=== PATIENT | female | born 1950 | race Caucasian/White ===

== ENCOUNTER 2021-09-07 08:31 | Outpatient (REF) | payer MEDICARE, SELFPAY ==
[2021-09-07 11:25] LABS: MANUAL DIFF FLAG NO
[2021-09-07 11:34] LABS: Appearance Urine CLEAR; Color Urine YELLOW; Glucose Urine UA NEG (NEG); Leukocyte Esterase Urine TRACE (NEG); Nitrite Urine NEG (NEG); PH 6.5 (5.0-8.0); Urine Blood NEG (NEG); Urine Ketones NEG (NEG); Urine Protein NEG (NEG-TRACE)
[2021-09-07 11:42] LABS: Basophils Absolute Auto 0.1 X10*3/uL (0.0-0.2); Basophils Percent Auto 1.3 % (0-2); Eosinophils Absolute Auto 0.3 X10*3/uL (0.0-0.4); Eosinophils Percent Auto 4.1 % (0-4); Hematocrit 39.5 % (37.0-47.0); Imm Gran Abs Auto 0.04 X10*3/uL (0.00-0.03); Imm Gran Pct Auto 0.5 % (0.0-0.4); Lymphocytes Absolute Auto 1.9 X10*3/uL (1.2-4.9); Lymphocytes Percent Auto 23.2 % (20-40); Mean Corpuscular HGB Conc 32.9 g/dl (31.0-35.0); Mean Corpuscular Hemoglobin 30.4 pg (27.0-33.0); Mean Corpuscular Volume 92.3 fL (80.0-98.0); Mean Platelet Volume 9.4 fL (9.4-12.3); Monocytes Absolute Auto 0.6 X10*3/uL (0.1-1.2); Monocytes Percent Auto 7.3 % (2-11); Neutrophils Absolute Auto 5.28 x10*3/uL (2.0-8.3); Neutrophils Percent Auto 63.6 % (45-73); Platelet Count 432 X10*3/uL (160-400); Red Blood Count 4.28 X10*6/uL (4.20-5.50); Red Cell Distribution Width 14.6 % (11.0-16.0); White Blood Count 8.3 X10*3/uL (4.8-10.8)
[2021-09-07 12:01] LABS: RBC Urine 0-2 /HPF (0); WBC Urine 0-2 /HPF (0-4)
[2021-09-07 12:20] LABS: Alanine Aminotransferase 12 U/L (0-31); Albumin Level 4.4 g/dL (3.5-5.0); Alkaline Phosphatase 71 U/L (39-117); Anion Gap 13 (12-20); Aspartate Amino Transferase 21 U/L (5-31); Bilirubin Total 0.3 mg/dL (0.0-1.0); Blood Urea Nitrogen 14 mg/dL (9-16); C Reactive Protein 0.08 mg/dL (< or = 0.50); Calcium 9.7 mg/dL (8.4-10.2); Carbon Dioxide 27 mmol/L (22-29); Chloride 105 mmol/L (96-108); Cholesterol 218 mg/dL; Estimated Glomerular Filt Rate > 60; Glucose Fasting 122 mg/dL (60-99); HDL Cholesterol 81 mg/dL; LDL Cholesterol Calculated 125 mg/dl; Potassium 5.7 mmol/L (3.3-5.1); Sodium 139 mmol/L (135-145); Total Protein 7.1 g/dL (6.5-8.0); Triglycerides 64 mg/dL
[2021-09-07 12:23] LABS: Erythrocyte Sedimentation Rate 8 MM/HR (0-20)
[2021-09-07 12:41] LABS: Thyroid Stimulating Hormone 2.74 uIU/mL (0.32-4.0); Vitamin D 25-OH Total 43.7 ng/mL (>30)
== END 2021-09-07 08:32 | disposition home or self-care (01) ==
LOC: HO.HMGCLDS 08:31
PROVIDERS: PCP Internal Medicine; Visit Provider Internal Medicine
DX: Z00.00 Encounter for general adult medical examination without abnormal findings (principal); R63.4 Abnormal weight loss; E78.00 Pure hypercholesterolemia, unspecified; F17.200 Nicotine dependence, unspecified, uncomplicated
CPT/HCPCS: 36415; 80053; 80061; 81001; 82306; 84443; 85025; 85652; 86140

== ENCOUNTER 2021-09-19 12:01 | Outpatient (REF) | payer MEDICARE, SELFPAY ==
--- NOTE | ~2021-09-19 | CT_ITS ---
EXAMINATION: CT CHEST, ABDOMEN PELVIS WITH CONTRAST. CLINICAL INFORMATION: Weight loss and nicotine dependence. COMPARISON: None. TECHNIQUE: 5 mm thin axial and reformatted 3 mm thin sagittal and coronal images of chest, abdomen and pelvis were obtained following IV administration of 85 mL Omnipaque 350. DLP 268 mGy-cm. FINDINGS: CHEST: Lungs: The lungs are well expanded and clear of acute pneumonic process. There are no pulmonary nodules, mass, consolidation or ground-glass density. Mediastinum: The thyroid lobes are symmetrical and normal. Central trachea and the bronchi are widely patent. Heart size and the great vessels are normal caliber. There is atherosclerotic plaque the with small dissection in the left proximal subclavian artery. There is no pericardial effusion. No abnormal-sized mediastinal or hilar lymphadenopathy seen. Pleura: There is no pleural thickening, calcification or effusion. Axilla: Small shotty lymph nodes are seen in the left axilla with the largest lymph node measuring 1.43 cm on image 9/4. No abnormal lymph nodes seen in the right axilla. Osseous structures: There is no lytic or sclerotic process seen. ABDOMEN AND PELVIS: Liver, gallbladder and biliary ducts: The liver is normal size, shape and density. No focal lesion or intrahepatic ductal dilatation seen. The gallbladder is unremarkable. Spleen: Unremarkable. Pancreas: There is mild enlargement of the body and the tail of pancreas but no focal or discrete lesion or enhancement seen. Adrenal glands and kidneys: The adrenal glands are symmetric and normal. Both kidneys are normal size, shape and density. No focal lesion or enhancement seen. There is no hydronephrosis. GI tract: There is kuyyltvj-dg-uqsvf amount of stool and gas seen throughout the colon most prominent in the ascending colon and the cecum region. The small bowel loops are normal caliber. No free air or free fluid seen. Lymphovascular structures: The abdominal aorta is normal caliber with mild sclerotic calcification. No abnormal size retroperitoneal lymph nodes or mass seen. Abdominal wall: Unremarkable. Pelvis: The bladder is distended but otherwise unremarkable. The uterus is anteverted and appears unremarkable. There is no adnexal mass or free fluid. Osseous structures: There is vacuum disc phenomena and degenerative disc changes L4-L5 disc level with mild loss of L3-L4 and L4-L5 disc levels. No lytic or sclerotic process seen. CT/CT chest w con IMPRESSION: No acute process seen in the chest. No pulmonary nodule or mass. Abnormal left axillary lymph nodes with the largest lymph node measuring 1.43 cm. Unknown etiology. Ultrasound-guided lymph node aspiration can be performed if clinically deemed necessary. Murrwqio-zf-ppcamkfsylz constipation without obstruction. No free air or free fluid seen.
--- NOTE | ~2021-09-19 | CT_ITS ---
EXAMINATION: CT CHEST, ABDOMEN PELVIS WITH CONTRAST. CLINICAL INFORMATION: Weight loss and nicotine dependence. COMPARISON: None. TECHNIQUE: 5 mm thin axial and reformatted 3 mm thin sagittal and coronal images of chest, abdomen and pelvis were obtained following IV administration of 85 mL Omnipaque 350. DLP 268 mGy-cm. FINDINGS: CHEST: Lungs: The lungs are well expanded and clear of acute pneumonic process. There are no pulmonary nodules, mass, consolidation or ground-glass density. Mediastinum: The thyroid lobes are symmetrical and normal. Central trachea and the bronchi are widely patent. Heart size and the great vessels are normal caliber. There is atherosclerotic plaque the with small dissection in the left proximal subclavian artery. There is no pericardial effusion. No abnormal-sized mediastinal or hilar lymphadenopathy seen. Pleura: There is no pleural thickening, calcification or effusion. Axilla: Small shotty lymph nodes are seen in the left axilla with the largest lymph node measuring 1.43 cm on image 9/4. No abnormal lymph nodes seen in the right axilla. Osseous structures: There is no lytic or sclerotic process seen. ABDOMEN AND PELVIS: Liver, gallbladder and biliary ducts: The liver is normal size, shape and density. No focal lesion or intrahepatic ductal dilatation seen. The gallbladder is unremarkable. Spleen: Unremarkable. Pancreas: There is mild enlargement of the body and the tail of pancreas but no focal or discrete lesion or enhancement seen. Adrenal glands and kidneys: The adrenal glands are symmetric and normal. Both kidneys are normal size, shape and density. No focal lesion or enhancement seen. There is no hydronephrosis. GI tract: There is fqotscga-ca-axxkf amount of stool and gas seen throughout the colon most prominent in the ascending colon and the cecum region. The small bowel loops are normal caliber. No free air or free fluid seen. Lymphovascular structures: The abdominal aorta is normal caliber with mild sclerotic calcification. No abnormal size retroperitoneal lymph nodes or mass seen. Abdominal wall: Unremarkable. Pelvis: The bladder is distended but otherwise unremarkable. The uterus is anteverted and appears unremarkable. There is no adnexal mass or free fluid. Osseous structures: There is vacuum disc phenomena and degenerative disc changes L4-L5 disc level with mild loss of L3-L4 and L4-L5 disc levels. No lytic or sclerotic process seen. CT/CT abdomen pelvis w con IMPRESSION: No acute process seen in the chest. No pulmonary nodule or mass. Abnormal left axillary lymph nodes with the largest lymph node measuring 1.43 cm. Unknown etiology. Ultrasound-guided lymph node aspiration can be performed if clinically deemed necessary. Tenwoumk-wo-avnjniiouqc constipation without obstruction. No free air or free fluid seen.
[2021-09-19] MEDS: iohexoL 350 MG/ML 100 ML INFUS..BTL IV (15:00)
[2021-09-19] MEDS: Barium Sulfate Oral (Berry) 450 ML ORAL.SUSP 900 ML PO (15:01)
== END 2021-09-19 12:02 | disposition home or self-care (01) ==
LOC: HO.CT 12:01
PROVIDERS: PCP Internal Medicine; Visit Provider Internal Medicine
DX: Z00.00 Encounter for general adult medical examination without abnormal findings (principal); R63.4 Abnormal weight loss; F17.200 Nicotine dependence, unspecified, uncomplicated
CPT/HCPCS: 71260; 74177; Q9967

== ENCOUNTER 2021-10-20 09:46 | Outpatient (REF) | payer MEDICARE, SELFPAY ==
[2021-10-20 11:19] LABS: MANUAL DIFF FLAG NO
[2021-10-20 11:32] LABS: Basophils Absolute Auto 0.1 X10*3/uL (0.0-0.2); Basophils Percent Auto 0.8 % (0-2); Eosinophils Absolute Auto 0.2 X10*3/uL (0.0-0.4); Hematocrit 38.7 % (37.0-47.0); Hemoglobin 12.7 g/dl (12.0-16.0); Imm Gran Abs Auto 0.05 X10*3/uL (0.00-0.03); Imm Gran Pct Auto 0.6 % (0.0-0.4); Lymphocytes Absolute Auto 2.1 X10*3/uL (1.2-4.9); Lymphocytes Percent Auto 23.7 % (20-40); Mean Corpuscular HGB Conc 32.8 g/dl (31.0-35.0); Mean Corpuscular Volume 91.3 fL (80.0-98.0); Mean Platelet Volume 9.1 fL (9.4-12.3); Monocytes Absolute Auto 0.9 X10*3/uL (0.1-1.2); Monocytes Percent Auto 10.3 % (2-11); Neutrophils Absolute Auto 5.7 x10*3/uL (2.0-8.3); Neutrophils Percent Auto 62.6 % (45-73); Platelet Count 496 X10*3/uL (160-400); Red Blood Count 4.24 X10*6/uL (4.20-5.50); Red Cell Distribution Width 14.1 % (11.0-16.0)
[2021-10-20 12:32] LABS: Alanine Aminotransferase 15 U/L (0-31); Albumin Level 4.2 g/dL (3.5-5.0); Alkaline Phosphatase 77 U/L (39-117); Anion Gap 13 (12-20); Aspartate Amino Transferase 25 U/L (5-31); Bilirubin Total 0.3 mg/dL (0.0-1.0); Blood Urea Nitrogen 15 mg/dL (9-16); Carbon Dioxide 27 mmol/L (22-29); Chloride 99 mmol/L (96-108); Estimated Glomerular Filt Rate > 60; Glucose Random 98 mg/dL (60-115); Potassium 4.8 mmol/L (3.3-5.1); Sodium 134 mmol/L (135-145); Total Protein 7.1 g/dL (6.5-8.0)
== END 2021-10-20 09:47 | disposition home or self-care (01) ==
LOC: HO.HMGCLDS 09:46
PROVIDERS: PCP Internal Medicine; Visit Provider Internal Medicine
DX: R63.4 Abnormal weight loss (principal)
CPT/HCPCS: 36415; 80053; 85025

== ENCOUNTER → 2021-10-27 12:58 | Outpatient (BNVA) | payer MEDICARE, SELFPAY | PROVIDERS: PCP Internal Medicine; Visit Provider Surgery | DX: R59.0 Localized enlarged lymph nodes (principal) | CPT/HCPCS: 99202 ==

== ENCOUNTER 2021-11-02 08:52 | Outpatient (REF) | payer MEDICARE, SELFPAY ==
--- NOTE | ~2021-11-02 | US_ITS ---
EXAMINATION: ULTRASOUND PRIOR TO POSSIBLE FINE-NEEDLE ASPIRATION BIOPSY OF 2 LEFT AXILLARY ENLARGED LYMPH NODES. CLINICAL INFORMATION: Enlarged left axillary lymph nodes. COMPARISON: CT scan of 09/19/2021. TECHNIQUE: Real-time imaging of the left axilla. FINDINGS: Scanning was performed of the questioned abnormal left axillary lymph nodes prior to attempted biopsy. Both lymph nodes are seen to have normal architecture with fatty hilum and no evidence of cortical thickening or lobulation. One of these lymph nodes measures 1.8 x 0.5 x 0.9 cm in size with the other measuring 1.2 x 0.8 x 0.6 cm in size. The fine-needle aspiration biopsy was not performed and a follow-up ultrasound examination in 3 months could be performed to ensure stability or regression of the lymph nodes. US/US extremity nonvascular IMPRESSION: Left axillary lymph nodes appear normal without suspicious findings. Fine-needle aspiration biopsy not performed.
== END 2021-11-02 08:53 | disposition home or self-care (01) ==
LOC: HO.US 08:52
PROVIDERS: Visit Provider Surgery
DX: R59.0 Localized enlarged lymph nodes (principal)
CPT/HCPCS: 76536; 76882

== ENCOUNTER 2021-11-03 08:23 | Outpatient (REF) | payer MEDICARE, SELFPAY ==
--- NOTE | ~2021-11-03 | MM_ITS ---
EXAMINATION: MM SCREENING DIGITAL BREAST TOMOSYNTHESIS, BILATERAL CLINICAL INFORMATION: Screening. Asymptomatic. Patient notes CT chest 09/19/2021 for weight loss noted fullness left axillary nodes. History COVID vaccine performed on left on 09/15/2021. The lifetime risk of breast cancer based on the Tyrer-Cuzick Model is 3%. COMPARISON: Outside mammography 06/24/2018 ([facility]). TECHNIQUE: Digital breast tomosynthesis is performed in both the craniocaudal and mediolateral oblique views along with computer-aided detection (CAD). Synthesized 2D images are generated from the tomosynthesis. FINDINGS: There are scattered areas of fibroglandular density (ACR BI-RADS breast composition Category b). Parenchymal pattern is similar to outside exam. There is no interval mass or architectural abnormality or abnormal calcifications. Left axillary nodes are stable from outside exam. The skin contours are smooth. No significant changes. MM/MM tomosynthesis screening BI IMPRESSION: No significant changes from prior outside exam 2017. ASSESSMENT: BI-RADS 2: Benign RECOMMENDATION: Routine annual mammography screening. This patient's information was entered into a reminder system with a target due date for their next mammogram.
== END 2021-11-03 08:24 | disposition home or self-care (01) ==
LOC: HO.MAMMO 08:23
PROVIDERS: Visit Provider Internal Medicine
DX: Z12.31 Encounter for screening mammogram for malignant neoplasm of breast (principal)
CPT/HCPCS: 77063; 77067

== ENCOUNTER → 2021-11-10 15:15 | Outpatient (BNVA) | payer MEDICARE, SELFPAY | PROVIDERS: PCP Internal Medicine; Visit Provider Surgery | DX: R59.0 Localized enlarged lymph nodes (principal) | CPT/HCPCS: 99212 ==

== ENCOUNTER 2021-12-19 10:00 | Outpatient (REF) | payer MEDICARE, SELFPAY ==
[2021-12-19 11:45] LABS: MANUAL DIFF FLAG NO
[2021-12-19 11:53] LABS: Basophils Absolute Auto 0.1 X10*3/uL (0.0-0.2); Basophils Percent Auto 1.6 % (0-2); Eosinophils Absolute Auto 0.1 X10*3/uL (0.0-0.4); Hematocrit 38.9 % (37.0-47.0); Hemoglobin 12.6 g/dl (12.0-16.0); Imm Gran Abs Auto 0.02 X10*3/uL (0.00-0.03); Imm Gran Pct Auto 0.4 % (0.0-0.4); Lymphocytes Absolute Auto 1.3 X10*3/uL (1.2-4.9); Mean Corpuscular HGB Conc 32.4 g/dl (31.0-35.0); Mean Corpuscular Hemoglobin 29.4 pg (27.0-33.0); Mean Corpuscular Volume 90.9 fL (80.0-98.0); Mean Platelet Volume 9.3 fL (9.4-12.3); Monocytes Absolute Auto 0.6 X10*3/uL (0.1-1.2); Monocytes Percent Auto 11.9 % (2-11); Neutrophils Absolute Auto 2.9 x10*3/uL (2.0-8.3); Neutrophils Percent Auto 58.1 % (45-73); Platelet Count 367 X10*3/uL (160-400); Red Blood Count 4.28 X10*6/uL (4.20-5.50); Red Cell Distribution Width 14.8 % (11.0-16.0)
== END 2021-12-19 10:01 | disposition home or self-care (01) ==
LOC: HO.HMGCLDS 10:00
PROVIDERS: PCP Internal Medicine; Visit Provider Internal Medicine
DX: R63.4 Abnormal weight loss (principal)
CPT/HCPCS: 36415; 85025

== ENCOUNTER 2022-02-08 11:31 | Outpatient (REF) | payer MEDICARE, SELFPAY ==
--- NOTE | ~2022-02-08 | US_ITS ---
EXAMINATION: ULTRASOUND NONVASCULAR UPPER EXTREMITY, LEFT CLINICAL INFORMATION: Follow-up left axillary lymphadenopathy. COMPARISON: Previous exam October 2021 . TECHNIQUE: Grayscale and color imaging of the left axilla using a linear transducer. Imaging of the contralateral right axilla was done for comparison. FINDINGS: There are 4 normal-appearing lymph nodes seen in the left axilla. There is a 1.4 x 0.6 x 0.8 cm lymph node. This is 1.8 x 0.5 x 0.9 cm on previous exam. There is a 1.1 x 0.6 x 1.1 cm lymph node. Previously this measured 1.2 x 0.8 x 0.6 cm. There is a 0.6 x 0.4 x 0.5 cm left axillary lymph node and a 1.1 x 0.5 x 0.6 cm left axillary lymph node that were not appreciated on previous exam. All lymph nodes demonstrate normal ultrasound morphology and flow. There are 2 lymph nodes in the right axilla. These measure 2 x 0.5 x 0.7 cm and 1.6 x 0.4 x 0.7 cm. Lymph nodes demonstrate normal ultrasound morphology and flow. US/US extremity nonvascular gipson IMPRESSION: Normal-appearing bilateral axillary lymph nodes.
== END 2022-02-08 11:32 | disposition home or self-care (01) ==
LOC: HO.HMGCX 11:31
PROVIDERS: PCP Internal Medicine; Visit Provider Surgery
DX: R59.0 Localized enlarged lymph nodes (principal)
CPT/HCPCS: 76882

== ENCOUNTER 2022-07-25 08:23 | Outpatient (REF) | payer MEDICARE, SELFPAY ==
[2022-07-25 11:51] LABS: MANUAL DIFF FLAG NO
[2022-07-25 12:06] LABS: Basophils Absolute Auto 0.1 X10*3/uL (0.0-0.2); Basophils Percent Auto 1.6 % (0-2); Eosinophils Absolute Auto 0.3 X10*3/uL (0.0-0.4); Eosinophils Percent Auto 3.7 % (0-4); Hematocrit 39.4 % (37.0-47.0); Hemoglobin 12.9 g/dl (12.0-16.0); Imm Gran Abs Auto 0.03 X10*3/uL (0.00-0.03); Imm Gran Pct Auto 0.4 % (0.0-0.4); Lymphocytes Absolute Auto 1.9 X10*3/uL (1.2-4.9); Lymphocytes Percent Auto 27.2 % (20-40); Mean Corpuscular HGB Conc 32.7 g/dl (31.0-35.0); Mean Corpuscular Hemoglobin 30.5 pg (27.0-33.0); Mean Corpuscular Volume 93.1 fL (80.0-98.0); Mean Platelet Volume 9.6 fL (9.4-12.3); Monocytes Absolute Auto 0.7 X10*3/uL (0.1-1.2); Monocytes Percent Auto 10.1 % (2-11); Platelet Count 395 X10*3/uL (160-400); Red Blood Count 4.23 X10*6/uL (4.20-5.50); Red Cell Distribution Width 14.6 % (11.0-16.0); White Blood Count 7.1 X10*3/uL (4.8-10.8)
[2022-07-25 12:43] LABS: Thyroid Stimulating Hormone 2.99 uIU/mL (0.32-4.0); Vitamin D 25-OH Total 55.2 ng/mL (>30)
[2022-07-25 12:52] LABS: Alanine Aminotransferase 17 U/L (0-31); Albumin Level 4.2 g/dL (3.5-5.0); Alkaline Phosphatase 76 U/L (39-117); Anion Gap 14 (12-20); Aspartate Amino Transferase 25 U/L (5-31); Bilirubin Total 0.3 mg/dL (0.0-1.0); Blood Urea Nitrogen 14 mg/dL (9-16); Calcium 9.7 mg/dL (8.4-10.2); Carbon Dioxide 26 mmol/L (22-29); Chloride 101 mmol/L (96-108); Cholesterol 227 mg/dL; Estimated Glomerular Filt Rate 60; Glucose Fasting 112 mg/dL (60-99); HDL Cholesterol 78 mg/dL; LDL Cholesterol Calculated 133 mg/dl; Lipase 184 U/L (8-78); Sodium 136 mmol/L (135-145); Total Protein 6.9 g/dL (6.5-8.0); Triglycerides 81 mg/dL
[2022-07-25 12:55] LABS: Amylase 151 U/L (28-100)
== END 2022-07-25 08:24 | disposition home or self-care (01) ==
LOC: HO.HMGCLDS 08:23
PROVIDERS: PCP Internal Medicine; Visit Provider Internal Medicine
DX: E78.00 Pure hypercholesterolemia, unspecified (principal); R63.4 Abnormal weight loss
CPT/HCPCS: 36415; 80053; 80061; 82150; 82306; 83690; 84443; 85025

== ENCOUNTER 2022-11-07 08:22 | Outpatient (REF) | payer MEDICARE, SELFPAY ==
--- NOTE | ~2022-11-07 | MM_ITS ---
EXAMINATION: MM SCREENING DIGITAL BREAST TOMOSYNTHESIS, BILATERAL CLINICAL INFORMATION: Screening. Asymptomatic. The lifetime risk of breast cancer based on the Tyrer-Cuzick Model is 3%. COMPARISON: Mammography: 11/03/2021; outside mammography 06/06/2018 ([facility]) TECHNIQUE: Digital breast tomosynthesis is performed in both the craniocaudal and mediolateral oblique views along with computer-aided detection (CAD). Synthesized 2D images are generated from the tomosynthesis. FINDINGS: There are scattered areas of fibroglandular density (ACR BI-RADS breast composition Category b). There are no significant masses, abnormal calcifications, or other abnormalities. Parenchymal pattern is similar to prior studies. There is no developing density or architectural abnormality. The axilla and skin contours are unremarkable. No significant changes. MM/MM tomosynthesis screening BI IMPRESSION: No mammographic evidence of malignancy. ASSESSMENT: BI-RADS 1: Negative RECOMMENDATION: Routine annual mammography screening. This patient's information was entered into a reminder system with a target due date for their next mammogram.
== END 2022-11-07 08:23 | disposition home or self-care (01) ==
LOC: HO.MAMMO 08:22
PROVIDERS: PCP Internal Medicine; Visit Provider Internal Medicine
DX: Z12.31 Encounter for screening mammogram for malignant neoplasm of breast (principal)
CPT/HCPCS: 77063; 77067

== ENCOUNTER 2022-12-06 09:56 | Outpatient (REF) | payer MEDICARE, SELFPAY ==
[2022-12-06 11:24] LABS: MANUAL DIFF FLAG NO
[2022-12-06 11:41] LABS: Basophils Absolute Auto 0.1 X10*3/uL (0.0-0.2); Basophils Percent Auto 1.7 % (0-2); Eosinophils Absolute Auto 0.3 X10*3/uL (0.0-0.4); Hematocrit 39.6 % (37.0-47.0); Hemoglobin 12.7 g/dl (12.0-16.0); Imm Gran Abs Auto 0.02 X10*3/uL (0.00-0.03); Imm Gran Pct Auto 0.3 % (0.0-0.4); Lymphocytes Absolute Auto 1.8 X10*3/uL (1.2-4.9); Lymphocytes Percent Auto 24.5 % (20-40); Mean Corpuscular HGB Conc 32.1 g/dl (31.0-35.0); Mean Corpuscular Hemoglobin 29.7 pg (27.0-33.0); Mean Corpuscular Volume 92.5 fL (80.0-98.0); Mean Platelet Volume 9.8 fL (9.4-12.3); Monocytes Absolute Auto 0.7 X10*3/uL (0.1-1.2); Monocytes Percent Auto 9.6 % (2-11); Neutrophils Absolute Auto 4.5 x10*3/uL (2.0-8.3); Neutrophils Percent Auto 59.9 % (45-73); Platelet Count 405 X10*3/uL (160-400); Red Blood Count 4.28 X10*6/uL (4.20-5.50); Red Cell Distribution Width 14.5 % (11.0-16.0); White Blood Count 7.5 X10*3/uL (4.8-10.8)
[2022-12-06 12:35] LABS: Alanine Aminotransferase 14 U/L (0-31); Albumin Level 4.4 g/dL (3.5-5.0); Alkaline Phosphatase 82 U/L (39-117); Amylase 113 U/L (28-100); Aspartate Amino Transferase 24 U/L (5-31); Bilirubin Direct < 0.2 mg/dL (0.0-0.5); Bilirubin Total 0.4 mg/dL (0.0-1.0); Lipase 85 U/L (8-78)
== END 2022-12-06 09:57 | disposition home or self-care (01) ==
LOC: HO.HMGCLDS 09:56
PROVIDERS: PCP Internal Medicine; Visit Provider Internal Medicine Gastroenterology
DX: Q45.3 Other congenital malformations of pancreas and pancreatic duct (principal)
CPT/HCPCS: 36415; 80076; 82150; 83690; 85025

== ENCOUNTER 2023-01-17 08:05 | Outpatient (REF) | payer MEDICARE, SELFPAY ==
--- NOTE | ~2023-01-17 | MR_ITS ---
EXAMINATION: MR ABDOMEN WITHOUT AND WITH CONTRAST CLINICAL INFORMATION: Pancreatic insufficiency. Constipation. COMPARISON: Portions of a CT 09/19/2021. TECHNIQUE: Anatomic and fluid sensitive MR sequences were used to examine the abdomen. MRCP was performed. Imaging before and after the IV administration of 5 mL of Gadavist. Type of contrast: Gadavist Volume of contrast discarded: 0 mL FINDINGS: LIVER: The right lobe of the liver measures 13.3 cm. The liver contour is smooth. The background hepatic signal is fairly homogeneous. No suspicious focal liver lesion. There is a small signal abnormality associated with the posterior capsular surface of hepatic segment 7. This could be related to some adjacent disease in the pleura, diaphragm or lung base. No suspicious features. BILIARY TRACT: MRCP was performed but is somewhat degraded by motion. There is no definite cholelithiasis. There is no biliary dilation or focal area of narrowing. There is no intrahepatic biliary dilation. The main pancreatic duct is not dilated. There are no suspicious cystic abnormalities. SPLEEN: The spleen is not enlarged. No suspicious focal abnormality. PANCREAS: There is no pancreatic mass. The pancreas enhances homogeneously. The main pancreatic duct caliber is within normal limits. There is no peripancreatic fluid or stranding. Overall pancreatic volume appears within normal limits. ADRENAL GLANDS: Normal. KIDNEYS: There is no dilation of the urinary collecting system on either side. No suspicious renal mass. The nephrograms are symmetric. GASTROINTESTINAL TRACT: There is no significant small bowel dilation demonstrated. ABDOMINAL WALL: No significant hernia is appreciated. LYMPHOVASCULAR STRUCTURES AND FLUID: There is no abdominal aortic aneurysm. The portal vein enhances. MUSCULOSKELETAL: There is degenerative change with associated endplate signal abnormality, greatest at L3-L4, but with narrowing at L4-L5 as well. VISUALIZED LOWER CHEST: No suspicious abnormality in the visualized lower chest. MR/MR abdomen wo/w con IMPRESSION: The pancreatic volume appears within normal limits and there is no significant pancreatic duct dilation or stricture.
== END 2023-01-17 08:06 | disposition home or self-care (01) ==
LOC: HO.MRI 08:05
PROVIDERS: Visit Provider Internal Medicine Gastroenterology
DX: Q45.3 Other congenital malformations of pancreas and pancreatic duct (principal)
CPT/HCPCS: 74183; A9585

== ENCOUNTER 2023-08-21 08:17 | Outpatient (REF) | payer MEDICARE, SELFPAY ==
[2023-08-21 11:41] LABS: MANUAL DIFF FLAG NO
[2023-08-21 11:49] LABS: Basophils Absolute Auto 0.1 X10*3/uL (0.0-0.2); Basophils Percent Auto 1.7 % (0-2); Eosinophils Absolute Auto 0.3 X10*3/uL (0.0-0.4); Eosinophils Percent Auto 3.6 % (0-4); Hematocrit 40.9 % (37.0-47.0); Hemoglobin 13.1 g/dl (12.0-16.0); Imm Gran Abs Auto 0.02 X10*3/uL (0.00-0.03); Imm Gran Pct Auto 0.3 % (0.0-0.4); Lymphocytes Absolute Auto 1.7 X10*3/uL (1.2-4.9); Lymphocytes Percent Auto 24.3 % (20-40); Mean Corpuscular Hemoglobin 29.7 pg (27.0-33.0); Mean Corpuscular Volume 92.7 fL (80.0-98.0); Mean Platelet Volume 9.6 fL (9.4-12.3); Monocytes Absolute Auto 0.7 X10*3/uL (0.1-1.2); Monocytes Percent Auto 9.4 % (2-11); Neutrophils Absolute Auto 4.4 x10*3/uL (2.0-8.3); Neutrophils Percent Auto 60.7 % (45-73); Platelet Count 432 X10*3/uL (160-400); Red Blood Count 4.41 X10*6/uL (4.20-5.50); Red Cell Distribution Width 14.7 % (11.0-16.0); White Blood Count 7.2 X10*3/uL (4.8-10.8)
[2023-08-21 12:19] LABS: Alanine Aminotransferase 14 U/L (0-31); Albumin Level 4.2 g/dL (3.5-5.0); Alkaline Phosphatase 74 U/L (39-117); Amylase 100 U/L (28-100); Anion Gap 12 (12-20); Aspartate Amino Transferase 23 U/L (5-31); Bilirubin Total 0.4 mg/dL (0.0-1.0); Blood Urea Nitrogen 11 mg/dL (9-16); C Reactive Protein 0.11 mg/dL (< or = 0.50); Calcium 9.3 mg/dL (8.4-10.2); Carbon Dioxide 26 mmol/L (22-29); Chloride 104 mmol/L (96-108); Cholesterol 219 mg/dL (<200); Estimated Glomerular Filt Rate > 60; Glucose Fasting 108 mg/dL (60-99); HDL Cholesterol 76 mg/dL (>40); LDL Cholesterol Calculated 128 mg/dL (<100); Lipase 69 U/L (8-78); Potassium 4.9 mmol/L (3.3-5.1); Sodium 137 mmol/L (135-145); Total Protein 7.1 g/dL (6.5-8.0); Triglycerides 78 mg/dL (<150)
[2023-08-21 12:24] LABS: Thyroid Stimulating Hormone 4.31 uIU/mL (0.32-4.0)
[2023-08-21 12:42] LABS: Erythrocyte Sedimentation Rate 9 MM/HR (0-20)
== END 2023-08-21 08:18 | disposition home or self-care (01) ==
LOC: HO.HMGCLDS 08:17
PROVIDERS: PCP Internal Medicine; Visit Provider Internal Medicine
DX: R63.4 Abnormal weight loss (principal); E78.00 Pure hypercholesterolemia, unspecified; Q45.3 Other congenital malformations of pancreas and pancreatic duct
CPT/HCPCS: 36415; 80053; 80061; 82150; 83690; 84443; 85025; 85652; 86140

== ENCOUNTER 2024-03-26 07:58 | Outpatient (REF) | payer MEDICARE, SELFPAY ==
[2024-03-26 10:15] LABS: MANUAL DIFF FLAG NO
[2024-03-26 10:22] LABS: Basophils Absolute Auto 0.1 X10*3/uL (0.0-0.2); Basophils Percent Auto 1.2 % (0-2); Eosinophils Absolute Auto 0.4 X10*3/uL (0.0-0.4); Hematocrit 40.1 % (37.0-47.0); Hemoglobin 13.3 g/dl (12.0-16.0); Imm Gran Abs Auto 0.03 X10*3/uL (0.00-0.03); Imm Gran Pct Auto 0.4 % (0.0-0.4); Lymphocytes Absolute Auto 2.2 X10*3/uL (1.2-4.9); Lymphocytes Percent Auto 27.2 % (20-40); Mean Corpuscular HGB Conc 33.2 g/dl (31.0-35.0); Mean Corpuscular Hemoglobin 30.3 pg (27.0-33.0); Mean Corpuscular Volume 91.3 fL (80.0-98.0); Mean Platelet Volume 9.4 fL (9.4-12.3); Monocytes Absolute Auto 0.8 X10*3/uL (0.1-1.2); Monocytes Percent Auto 9.2 % (2-11); Neutrophils Absolute Auto 4.6 x10*3/uL (2.0-8.3); Platelet Count 430 X10*3/uL (160-400); Red Blood Count 4.39 X10*6/uL (4.20-5.50); Red Cell Distribution Width 15.1 % (11.0-16.0); White Blood Count 8.2 X10*3/uL (4.8-10.8)
[2024-03-26 11:00] LABS: Alanine Aminotransferase 14 U/L (0-31); Albumin Level 4.3 g/dL (3.5-5.0); Alkaline Phosphatase 76 U/L (39-117); Anion Gap 13 (12-20); Aspartate Amino Transferase 23 U/L (5-31); Bilirubin Total 0.4 mg/dL (0.0-1.0); Blood Urea Nitrogen 15 mg/dL (9-16); Calcium 9.7 mg/dL (8.4-10.2); Carbon Dioxide 26 mmol/L (22-29); Chloride 106 mmol/L (96-108); Cholesterol 228 mg/dL (<200); Estimated Glomerular Filt Rate > 60; Glucose Fasting 105 mg/dL (60-99); HDL Cholesterol 81 mg/dL (>40); LDL Cholesterol Calculated 127 mg/dL (<100); Sodium 141 mmol/L (135-145); Total Protein 7.5 g/dL (6.5-8.0); Triglycerides 102 mg/dL (<150)
[2024-03-26 11:17] LABS: Thyroid Stimulating Hormone 4.41 uIU/mL (0.32-4.0)
== END 2024-03-26 07:59 | disposition home or self-care (01) ==
LOC: HO.HMGCLDS 07:58
PROVIDERS: PCP Internal Medicine; Visit Provider Internal Medicine
DX: R63.4 Abnormal weight loss (principal); E78.00 Pure hypercholesterolemia, unspecified
CPT/HCPCS: 36415; 80053; 80061; 84443; 85025

== ENCOUNTER 2024-10-21 08:17 | Outpatient (REF) | payer MEDICARE, SELFPAY ==
--- OUTSIDE RECORDS SUMMARY | 2024-10-21 08:22 | XMS_ITS | Patient Health Record ---
Author Organization [facility] Address [address] [place] [address] Care Team Providers Care Equipment Tester Name Role Phone Agus Recio DO Primary Care Provider Unavail Mc Main Jr Unavailable ALLERGIES Allergen (clinical drug ingredient) Drug/Non Drug Allergy documented on EMR Reaction Allergy Type Onset Date Status banana allergenic extract bananas (uncoded) Unknown Allergy Active REASON FOR REFERRAL No Information MEDICATIONS Medication SIG (Take, Route, Frequency, Duration) Notes Start Date End Date Status Aspirin 81 MG 1 tablet Orally Once a day Active Atorvastatin Calcium 10 MG 1 tablet Oral ly Once a day Active Multi Adult Gummies - as directed Orally Active IMMUNIZATIONS Vaccine Route Administration Date Status Comme nts Influenza Unknown 08/23/2022 Administered SOCIAL HISTORY Sex Assigned At : Social History Observation Description Sex Assigned At Unknown PROBLEMS Problem Type ICD Code Onset Dates Problem Status W/U Status Risk SNOMED Code Notes Problem Pancreatic abnormality (Q45.3) Active confirmed 1814161 Encounters Encounter Location Date Provider Diagnosis [facility] [address] [place] [address] 09/22/2024 Mc Cheung Jr PLAN OF TREATMENT Pending Test Test Name Order Date LIVER PROFILE 12/04/2022 AMYLASE 12/04/2022 LIPASE 12/04/2022 CBC w/o DIFF 12/04/2022 MRI ABD W&WO CONTRAST 12/08/2022 Future Test Test Name Order Date COLONOSCOPY 06/16/2015 Next Appt Details Provider Name:Mc montgomery Jr, 12/08/2024 11:20:00 AM, [address], [address], [place], [address], Insurance Providers Payer Name Payer Address Payer Phone Subscriber Number Group Number Insured Name Patient Relationship to Insured Coverage Start Date Coverage End Date [facility] [address] [place] [address] [id number] NATALIO MCINTYRE Self - patient is the insured MEDICAL (GENERAL) HISTORY Medical History History ICD Code elevated cholesterol Colonoscopy 10/20/15, normal, ten-year f [facility] Surgical History Surgery Date(Month/Year) knee surgery
--- OUTSIDE RECORDS SUMMARY | 2024-10-21 08:22 | XMS_ITS ---
Author Organization Agus Recio DO, FACP Address [address] [place] [id number] Care Team Providers Care Branch Specialist Name Role Phone Agus Recio Primary Care Provider ALLERGIES No Known Allergies REASON FOR VISIT 6 month f/u, Follow up hypercholesterolemia, Weight loss MEDICATIONS Medication SIG (Take, Route, Frequency, Duration) Notes Start Date End Date Status Multivitamins - 1 capsule Orally Onc e a day Active Atorvastatin Calcium 10 MG 1 tablet Oral ly Once a day Active SOCIAL HISTORY Tobacco Use: Social History Observation Description Date Details (start date - stop date) Current Smoker NA - NA Sex Assigned At : Social History Observation Description Sex Assigned At Unknown Tobacco Use/Smoking Question Answer Notes Patient is a current smoker How often do you smoke cigarettes? every day How many cigarettes a day do you smoke? 5 or les s How soon after you wake up d o you smoke your first cigarette? after 60 minutes Are you interested in quitting? Ready to quit Additional Findings: Tobacco User Curren t cigarette smoker, not currently using another form of tobacco Alcohol Screen Question Answer Notes Did you have a drink contain ing alcohol in the past year? Yes How often did you have a dri nk containing alcohol in the past year? 2 to 4 times a month (2 points) How many drinks did you have on a typical day when you were drinking in the past year? 1 or 2 drinks (0 point) How often did you have 6 or more drinks on one occasion in the past year? Never (0 point) Points 2 Interpretation Negative VITAL SIGNS BMI 20.37 kg/m2 07/30/2024 Blood pressure systolic 136 mm Hg 07/30/20 24 Blood pressure diastolic 70 mm Hg 024 Height 63.00 in 07/30/2024 Weight 115 lbs 07/30/2024 Encounters Encounter Location Date Provider Diagnosis [facility], [facility] [address] [place] [phone] 07/30/2024 Agus Recio Pancreatic abnormali ty Q45.3 ; Weight loss R63.4 ; Nicotine dependence, unspecified, uncomplicated F17.200 and Hypercholesterolemia E78.00 ASSESSMENTS Encounter Date Diagnosis Assessment Notes Treatment Notes Treatment Clinical Notes 07/30/2024 Pancreatic abnormali ty (ICD-10 - Q45.3) 07/30/2024 Weight loss (ICD-10 - R63.4) 07/30/2024 Nicotine dependence, unspecified, uncomplicated (ICD-10 - F17.200) 07/30/2024 Hypercholesterolemia (ICD-10 - E78.00) PLAN OF TREATMENT Medication Medication Name Sig Start Date Stop Date Notes Multivitamins - 1 capsule Orally Once a day Atorvastatin Calcium 10 MG 1 tablet Orally Once a day Pending Test Test Name Order Date CBC w DIFF 07/30/2024 LIPOPROTEIN FRACTIONATION (LIPID PANEL) 07/30/2024 PROFILE, FASTING 07/30/2024 TSH (THYROID STIMULATING HORMONE) 2023 Amylase 07/30/2024 Lipase 07/30/2024 CT chest wo/w con 07/30/2024 CT abdomen pelvis w con 07/30/2024 Next Appt Details Follow Up: 6 Weeks, Reason: follow up visit,review lab work Provider Name:Agus Dobbs js, 11/11/2024 11:00:00 AM, [address] [place] [address], [phone], Progress Notes * Examination Category Sub-Category Detail Notes General Examination GENERAL APPEARANCE: in no ac fidelia distress, well developed, well nourished HEAD: normocephalic, atrau matic NECK/THYROID: neck supple, thyroid normal, no cervical lymphadenopathy HEART: no murmurs, regular rate and rhythm, S1, S2 normal LUNGS: clear to auscultatio n bilaterally ABDOMEN: normal, bowel sounds present, soft, nontender, nondistended SKIN: warm and dry EXTREMITIES: no edema PSYCH: alert, oriented, cog nitive function intact
--- OUTSIDE RECORDS SUMMARY | 2024-10-21 08:22 | XMS_ITS ---
Author Organization [facility] Address [address] [place] [address] Care Team Providers Care Consulting Application Engineer Name Role Phone Agus Recio DO Primary Care Provider Unavail luz Cheung Jr, Mc Unavailable REASON FOR VISIT Patient presents today for ELEVATED PANCREATIC ENZYMES Encounters Encounter Location Date Provider Diagnosis [facility] [address] [place] [address] 09/22/2024 Mc Cheung Jr PLAN OF TREATMENT Next Appt Details Provider Name:Mc montgomery Jr, 12/08/2024 11:20:00 AM, [address], [address], [place], [address],
--- OUTSIDE RECORDS SUMMARY | 2024-10-21 08:22 | XMS_ITS ---
Author Organization Agus Recio DO, [facility] Address [address] [place] [id number] Care Team Providers Care Ophthalmic Tech Name Role Phone Agus Recio Primary Care Provider REASON FOR VISIT 6 week f/u Encounters Encounter Location Date Provider Diagnosis Agus Recio DO, FACP [address] [facility] [place] [phone] 09/12/2024 Agus Recio PLAN OF TREATMENT Next Appt Details Provider Name:Agus weinstein, 11/11/2024 11:00:00 AM, [address] [place], [place], [phone],
--- OUTSIDE RECORDS SUMMARY | 2024-10-21 08:23 | XMS_ITS ---
Author Organization Agus Recio DO, FACP Address [address] [place] [id number] Care Team Providers Care Bakery Manager Name Role Phone Agus Recio Primary Care Provider [phone] ALLERGIES No Known Allergies REASON FOR VISIT 6 month f/u, Follow up Weight loss MEDICATIONS Medication SIG (Take, Route, [...] Points 2 Interpretation Negative VITAL SIGNS BMI 20.19 kg/m2 01/29/2024 Blood pressure systolic 134 mm Hg 01/29/20 24 Blood pressure diastolic 58 mm Hg 024 Height 63.00 in 01/29/2024 Weight 114 lbs 01/29/2024 Encounters Encounter Location Date Provider Diagnosis [facility] [address] [place], [place] [phone] 01/29/2024 Agus Recio Hypercholesterolemia E78.00 and Weight loss R63.4 ASSESSMENTS Encounter Date Diagnosis Assessment Notes Treatment Notes Treatment Clinical Notes 01/29/2024 Hypercholesterolemia (ICD-10 - E78.00) 01/29/2024 Weight loss (ICD-10 - R63.4) Weight loss has stabilized. Weight is up PLAN OF TREATMENT Medication Medication Name Sig Start Date Stop Date Notes Multivitamins - 1 capsule Orally Once a day Atorvastatin Calcium 10 MG 1 tablet Orally Once a day Treatment Notes Assessment Notes Weight loss Weight loss has stab ilized. Weight is up Next Appt Details Follow Up: 6 Months, Reason: follow up visit,review lab work Provider Name:Agus Dobbs js, 11/11/2024 11:00:00 AM, [address] [place] [address], [phone], Progress Notes * Examination Category Sub-Category Detail Notes General Examination GENERAL APPEARANCE: in no ac la posta distress, well developed, well nourished HEAD: normocephalic, atrau matic NECK/THYROID: neck supple, thyroid normal, no cervical lymphadenopathy HEART: no murmurs, regular rate and rhythm, S1, S2 normal LUNGS: clear to auscultatio n bilaterally ABDOMEN: normal, bowel sounds present, soft, nontender, nondistended SKIN: warm and dry EXTREMITIES: no edema PSYCH: alert, oriented, cog nitive function intact
--- OUTSIDE RECORDS SUMMARY | 2024-10-21 08:23 | XMS_ITS | Patient Health Record ---
Author Organization Agus Recio DO, FACP Address [address] [facility] [place] [id number] Care Team Providers Care Rn Gastroenterology Name Role Phone Agus Recio Primary Care Provider ALLERGIES No Known Allergies RESULTS Component Value Reference Range Notes Complete Blood Count Auto Di ff Reviewed date:03/26/2024 10:56:48 AM Interpretation:Abnormal Performing Lab:[facility], [address] [place] [phone] Notes/Report: White Blood Count 8.2 4.8-10.8 X10*3/uL Red Blood Count 4.39 4.20-5.50 X10*6/uL Hemoglobin 13.3 12.0-16.0 g/dl Hematocrit 40.1 37.0-47.0 % Mean Corpuscular Volume 91.3 80.0-98.0 fL Mean Corpuscular Hemoglobin 30.3 27.0-33.0 pg Mean Corpuscular HGB Conc 33.2 31.0-35.0 g/dl Red Cell Distribution Width 15.1 11.0-16.0 % Platelet Count 430 160-400 X10*3/uL Mean Platelet Volume 9.4 9.4-12.3 fL Neutrophils Percent Auto 57.0 45-73 % Imm Gran Pct Auto 0.4 0.0-0.4 % Lymphocytes Percent Auto 27.2 20-40 % Monocytes Percent Auto 9.2 2-11 % Eosinophils Percent Auto 5.0 0-4 % Basophils Percent Auto 1.2 0-2 % NRBC Pct Auto 0.0 0.0-0.2 /100WBC Neutrophils Absolute Auto 4.6 2.0-8.3 x10*3/u L Imm Gran Abs Auto 0.03 0.00-0.03 X10*3/uL Lymphocytes Absolute Auto 2.2 1.2-4.9 X10*3/u L Monocytes Absolute Auto 0.8 0.1-1.2 X10*3/uL Eosinophils Absolute Auto 0.4 0.0-0.4 X10*3/u L Basophils Absolute Auto 0.1 0.0-0.2 X10*3/uL NRBC Abs Auto 0.000 0.0-0.012 X10*3/uL Comprehensive [place]. Panel Fa st Reviewed date:03/26/2024 12:02:20 PM Interpretation:Abnormal Performing Lab:[facility], [address] [place] [phone] Notes/Report: Sodium 141 135-145 mmol/L Potassium 4.0 3.3-5.1 mmol/L Chloride 106 96-108 mmol/L Carbon Dioxide 26 22-29 mmol/L Anion Gap 13 12-20 Blood Urea Nitrogen 15 9-16 mg/dL Creatinine 0.83 0.5-1.4 mg/dL Estimated Glomerular Filt Rate > 60 NOTE: For -Mauritian individuals, multiply the result by 1.210. Chronic Kidney Disease: Estimated GFR < 60 mL/min/1.73m2 Severe Kidney Disease: Estimated GFR < 15 mL/min/1.73m2 Glucose Fasting 105 60-99 mg/dL A fasting glucose from 100-125 mg/dl is considered impaired (pre-diabetes). Calcium 9.7 8.4-10.2 mg/dL Bilirubin Total 0.4 0.0-1.0 mg/dL Aspartate Amino Transferase 23 5-31 U/L Alanine Aminotransferase 14 0-31 U/L Total Protein 7.5 6.5-8.0 g/dL Albumin Level 4.3 3.5-5.0 g/dL Alkaline Phosphatase 76 39-117 U/L Lipid Panel Reviewed date:03/26/2024 12:02:20 PM Interpretation:Abnormal Performing Lab:[facility], [address] [place] [phone] Notes/Report: Triglycerides 102 <150 mg/dL Desirable Triglyceride: less than 150 mg/dL Borderline High Triglyceride 150-199 mg/dL High Triglyceride: 200-499 mg/dL Very High Triglyceride: greater than or equal to 5OO mg/dL Cholesterol 228 <200 mg/dL Desirable Cholesterol: less than 200 mg/dL Borderline High Cholesterol: 200-239 mg/dL High Cholesterol: greater than 239 mg/dL LDL Cholesterol Calculated 127 <100 mg/dL Desirable LDL: less than 100 mg/dL Near Optimal/Above Optimal LDL: 110-129 mg/dL Borderline High LDL: 130-159 mg/dL High LDL: 160-189 mg/dL Very High LDL: greater than or equal to 190 mg/dL HDL Cholesterol 81 >40 mg/dL Desirable HDL: greater than 40 mg/dL Note: This HDL assay may give artificially low results in patients with liver disease. Thyroid Stimulating Hormone Reviewed date:03/26/2024 12:02:36 PM Interpretation:Abnormal Performing Lab:[facility], [address] [place] [phone] Notes/Report: Thyroid Stimulating Hormone 4.41 0.32-4.0 uIU/ mL Note: A sustained TSH level above 2.5 uIU/mL may warrant further investigation. TSH 3rd Generation ([facility]) REASON FOR REFERRAL Reason Hearing evaluation Diagnosis 1 Periodic health asse ssment, general screening, adult (Z00.00) Referral Organization Agus Waddell O, FACP Referring Provider First Name Agus Referring Provider Last Name Hemal Referring Provider Speciality Internal M edicine Referred Provider Alondra Arroyo Referred Provider Specialty Audiologists General Notes Cheri Zhang 024 02:38:18 PM EST > patient initiated referral; referral faxed. Referral Priority Routine MEDICATIONS Medication SIG (Take, Route, Frequency, Duration) Notes Start Date End Date Status Multivitamins - 1 capsule Orally Onc e a day Active Atorvastatin Calcium 10 MG 1 tablet Oral ly Once a day Active IMMUNIZATIONS Vaccine Route Administration Date Status Comme nts TDaP IM Intramuscular 11/22/2016 Administered Pneumococcal - PPSV23 IM Intramuscular 05/21/2017 Administ ered Influenza High Dose IM Intramuscular 08/09/2020 Administer ed Influenza Quad IM Intramuscular 08/30/2021 Administered Influenza Quad Unknown 09/08/2014 Administered COVID-19 Moderna Vaccine Unknown 01/17/2021 Administere d COVID-19 Moderna Vaccine Unknown 02/14/2021 Administere d COVID-19 Moderna Vaccine Unknown 09/15/2021 Administere d Flu-aIIV4 Unknown 08/18/2022 Administered COVID-19 Moderna Vaccine Unknown 02/15/2022 Administere d Influenza High Dose IM Intramuscular 08/01/2023 Administer ed Influenza High Dose Unknown 08/08/2024 Administered Influenza Unknown 11/26/2015 Refused Influenza Unknown 11/23/2015 Refused SOCIAL HISTORY Tobacco Use: Social History Observation [...] Ready to quit Additional Findings: Tobacco User Alessandro t cigarette smoker, not currently using another [...] Never (0 point) Points 2 Interpretation Negative PROBLEMS Problem Type ICD Code Onset Dates Problem Status W/U Status Risk SNOMED Code Notes Problem Weight loss (R63.4) Active confirmed 89 494179 Problem Nicotine dependence, unspecified, uncomplicated (F17.200) Active confirmed Toba senior fund accountant user ([id number]) Problem Retinal detachment, left (H33.22) Active confirmed 81859888 Problem Hypercholesterolemia (E78.00) Active confirmed 42261457 Problem Pancreatic abnormali ty (Q45.3) Active confirmed 3249304 VITAL SIGNS Blood pressure diastolic 70 mm Hg 07/30/2024 Height 63.00 in 07/30/2024 Blood pressure systolic 136 mm Hg 07/30/2024 Weight 115 lbs 07/30/2024 BMI 20.37 kg/m2 07/30/2024 Encounters Encounter Location Date Provider Diagnosis Agus Recio DO, FACP [address] [place], [place] [phone] 01/29/2024 Agus Recio Hypercholesterolemia E78.00 and Weight loss R63.4 Agus Recio DO, FACP [address] [place], [place] [id number] 07/30/2024 Agus Senman Pancreatic abnormali ty Q45.3 ; Weight loss R63.4 ; Nicotine dependence, unspecified, uncomplicated F17.200 and Hypercholesterolemia E78.00 Agus Jim Hemal , [facility] [address] [place], [place] [id number] 09/12/2024 Agus Recio ASSESSMENTS Encounter Date Diagnosis Assessment Notes Treatment Notes Treatment Clinical Notes 01/29/2024 Weight loss (ICD-10 - R63.4) Weight loss has stabilized. Weight is up 01/29/2024 Hypercholesterolemia (ICD-10 - E78.00) 07/30/2024 Weight loss (ICD-10 - R63.4) 07/30/2024 Pancreatic abnormali ty (ICD-10 - Q45.3) 07/30/2024 Nicotine dependence, unspecified, uncomplicated (ICD-10 - F17.200) 07/30/2024 Hypercholesterolemia (ICD-10 - E78.00) PLAN OF TREATMENT Pending Test Test Name Order Date CBC w DIFF 07/30/2024 LIPOPROTEIN FRACTIONATION (LIPID PANEL) 07/30/2024 PROFILE, FASTING 07/30/2024 TSH (THYROID STIMULATING HORMONE) 2023 Amylase 07/30/2024 Lipase 07/30/2024 CT chest wo/w con 07/30/2024 CT abdomen pelvis w con 07/30/2024 Next Appt Details Provider Name:Agus Dobbs js, 11/11/2024 11:00:00 AM, [address] [place] [address], [id number], Insurance Providers Payer Name Payer Address Payer Phone Subscriber Number Group Number Insured Name Patient Relationship to Insured Coverage Start Date Coverage End Date [facility] MEDICARE COMPLETE [address] [address] [place] [address] [id number] Linda Sorto Self - patient is the insured MEDICARE [address] [place] [phone] [id number] Linda Sorto Self - patient is the insured MEDICAL (GENERAL) HISTORY Medical History History ICD Code hypercholesterolemia fibromyalgia left patellar fracture retinal detachment OS cataracts Weight loss R63.4 Pancreatic abnormality Q45.3 Surgical History Surgery Date(Month/Year) wisdom teeth extraction section left patellar surgery retinal detachment repair OS times 3 cataract removal OS
[2024-10-21 09:57] LABS: MANUAL DIFF FLAG NO
[2024-10-21 10:14] LABS: Basophils Absolute Auto 0.1 X10*3/uL (0.0-0.2); Basophils Percent Auto 1.8 % (0-2); Eosinophils Absolute Auto 0.2 X10*3/uL (0.0-0.4); Eosinophils Percent Auto 3.4 % (0-4); Hemoglobin 12.9 g/dl (12.0-16.0); Imm Gran Abs Auto 0.02 X10*3/uL (0.00-0.03); Imm Gran Pct Auto 0.3 % (0.0-0.4); Lymphocytes Absolute Auto 1.7 X10*3/uL (1.2-4.9); Lymphocytes Percent Auto 24.4 % (20-40); Mean Corpuscular HGB Conc 33.1 g/dl (31.0-35.0); Mean Corpuscular Hemoglobin 30.1 pg (27.0-33.0); Mean Corpuscular Volume 90.9 fL (80.0-98.0); Mean Platelet Volume 9.3 fL (9.4-12.3); Monocytes Absolute Auto 0.7 X10*3/uL (0.1-1.2); Monocytes Percent Auto 9.7 % (2-11); Neutrophils Absolute Auto 4.3 x10*3/uL (2.0-8.3); Neutrophils Percent Auto 60.4 % (45-73); Platelet Count 371 X10*3/uL (160-400); Red Blood Count 4.29 X10*6/uL (4.20-5.50); Red Cell Distribution Width 14.6 % (11.0-16.0)
[2024-10-21 10:48] LABS: Alanine Aminotransferase 17 U/L (0-31); Albumin Level 4.2 g/dL (3.5-5.0); Alkaline Phosphatase 69 U/L (39-117); Amylase 112 U/L (28-100); Anion Gap 9 (12-20); Aspartate Amino Transferase 30 U/L (5-31); Bilirubin Total 0.3 mg/dL (0.0-1.0); Blood Urea Nitrogen 15 mg/dL (9-16); Calcium 9.3 mg/dL (8.4-10.2); Carbon Dioxide 27 mmol/L (22-29); Chloride 107 mmol/L (96-108); Cholesterol 209 mg/dL (<200); Estimated Glomerular Filt Rate > 60; Glucose Fasting 115 mg/dL (60-99); HDL Cholesterol 79 mg/dL (>40); LDL Cholesterol Calculated 117 mg/dL (<100); Lipase 76 U/L (8-78); Sodium 138 mmol/L (135-145); Total Protein 7.4 g/dL (6.5-8.0); Triglycerides 68 mg/dL (<150)
[2024-10-21 10:53] LABS: Thyroid Stimulating Hormone 4.38 uIU/mL (0.32-4.0)
== END 2024-10-21 08:18 | disposition home or self-care (01) ==
LOC: HO.HMGCLDS 08:17
PROVIDERS: PCP Internal Medicine; Visit Provider Internal Medicine
DX: Q45.3 Other congenital malformations of pancreas and pancreatic duct (principal); R63.4 Abnormal weight loss; F17.200 Nicotine dependence, unspecified, uncomplicated; E78.00 Pure hypercholesterolemia, unspecified
CPT/HCPCS: 36415; 80053; 80061; 82150; 83690; 84443; 85025

== ENCOUNTER 2024-10-25 08:52 | Outpatient (REF) | payer MEDICARE, SELFPAY ==
--- OUTSIDE RECORDS SUMMARY | 2024-10-25 08:54 | XMS_ITS ---
Author Organization Agus Recio DO, FACP Address [address] [facility] [address] [place] [phone] Care Team Providers Care Sweatband Maker Name Role Phone Agus Recio Primary Care [...] Location Date Provider Diagnosis Agus Recio DO, [address] [id number] 01/29/2024 Agus Recio Hypercholesterolemia E78.00 and Weight [...] Months, Reason: follow up visit,review lab work Progress Notes * Examination Category Sub-Category Detail Notes General Examination GENERAL APPEARANCE: in no ac lytton distress, well developed, well nourished HEAD: normocephalic, atrau matic NECK/THYROID: neck supple, thyroid normal, no cervical lymphadenopathy HEART: no murmurs, regular rate and rhythm, S1, S2 normal LUNGS: clear to auscultatio n bilaterally ABDOMEN: normal, bowel sounds present, soft, nontender, nondistended SKIN: warm and dry EXTREMITIES: no edema PSYCH: alert, oriented, cog nitive function intact
--- OUTSIDE RECORDS SUMMARY | 2024-10-25 08:54 | XMS_ITS ---
Author Organization Agus Recio DO, FACP Address [address] [facility] [address] [address] [place] [id number] Care Team Providers Care Standards Analyst Name Role Phone Agus Recio Primary Care Provider [phone] ALLERGIES No Known Allergies REASON FOR VISIT [...] Encounters Encounter Location Date Provider Diagnosis Agus Jim Hemal DO, [address] [id number] 07/30/2024 Agus Recio Pancreatic abnormali ty Q45.3 [...] day Pending Test Test Name Order Date CT chest wo/w con 07/30/2024 CT abdomen pelvis w con 07/30/2024 Next Appt Details Follow Up: 6 Weeks, Reason: follow up visit,review lab work Progress [...]
--- OUTSIDE RECORDS SUMMARY | 2024-10-25 08:54 | XMS_ITS | Patient Health Record ---
Author Organization [facility] Address [address] [place] [address] Care Team Providers Care Prosthetics Technician Name Role Phone Agus Recio DO Primary [...] Notes Problem Pancreatic abnormality (Q45.3) Active confirmed [id number] Encounters Encounter Location Date Provider Diagnosis [facility] [address] [place] [address] 09/22/2024 Mc Cheung Jr PLAN OF TREATMENT Pending Test Test Name Order Date LIVER PROFILE 12/04/2022 AMYLASE 12/04/2022 LIPASE 12/04/2022 CBC w/o DIFF 12/04/2022 MRI ABD W&WO CONTRAST 12/08/2022 Future Test Test Name Order Date COLONOSCOPY 06/16/2015 Next Appt Details Provider Name:Mc montgomery Jr, 12/08/2024 11:20:00 AM, [address], [address], [place], [address], Insurance Providers Payer Name Payer Address Payer Phone Subscriber Number Group Number Insured Name Patient Relationship to Insured Coverage Start Date Coverage End Date [facility] [address] [place] [id number] NATALIO MCINTYRE Self - patient is the insured MEDICAL (GENERAL) HISTORY Medical History History ICD Code elevated cholesterol Colonoscopy 10/20/15, normal, ten-year f [facility] Surgical History Surgery Date(Month/Year) knee surgery
--- OUTSIDE RECORDS SUMMARY | 2024-10-25 08:54 | XMS_ITS | Patient Health Record ---
Author Organization Agus Recio DO, FACP Address [address] [facility] [place] [phone] Care Team Providers Care Hose Maker Name Role Phone Agus Recio Primary Care Provider ALLERGIES No Known Allergies RESULTS Component Value Reference Range Notes Complete Blood Count Auto Di ff Reviewed date:03/26/2024 10:56:48 AM Interpretation:Abnormal Performing Lab:[facility], [address] [place] [phone] Notes/Report: White Blood Count 8.2 4.8-10.8 X10*3/uL [...] NRBC Abs Auto 0.000 0.0-0.012 X10*3/uL Comprehensive [place]. Panel Fa st Reviewed date:03/26/2024 12:02:20 PM Interpretation:Abnormal Performing Lab:[facility], [address] [place] [phone] Notes/Report: Sodium 141 135-145 mmol/L Potassium 4.0 3.3-5.1 mmol/L Chloride 106 96-108 mmol/L Carbon Dioxide 26 22-29 mmol/L Anion Gap 13 12-20 Blood Urea Nitrogen 15 9-16 mg/dL Creatinine 0.83 0.5-1.4 mg/dL Estimated Glomerular Filt Rate > 60 NOTE: For -Lithuanian individuals, multiply the result by 1.210. Chronic [...] Panel Reviewed date:03/26/2024 12:02:20 PM Interpretation:Abnormal Performing Lab:[facility], [address] [place] [phone] Notes/Report: Triglycerides 102 <150 mg/dL Desirable Triglyceride: [...] Hormone Reviewed date:03/26/2024 12:02:36 PM Interpretation:Abnormal Performing Lab:[facility], [address] [place] [phone] Notes/Report: Thyroid Stimulating Hormone 4.41 0.32-4.0 uIU/ mL Note: A sustained TSH level above 2.5 uIU/mL may warrant further investigation. TSH 3rd Generation ([facility]) Complete Blood Count Auto Di ff Reviewed date:10/21/2024 10:23:08 AM Interpretation:Normal Performing Lab:[facility], [address] [place] [phone] Notes/Report: White Blood Count 7.0 4.8-10.8 X10*3/uL Red Blood Count 4.29 4.20-5.50 X10*6/uL Hemoglobin 12.9 12.0-16.0 g/dl Hematocrit 39.0 37.0-47.0 % Mean Corpuscular Volume 90.9 80.0-98.0 fL Mean Corpuscular Hemoglobin 30.1 27.0-33.0 pg Mean Corpuscular HGB Conc 33.1 31.0-35.0 g/dl Red Cell Distribution Width 14.6 11.0-16.0 % Platelet Count 371 160-400 X10*3/uL Mean Platelet Volume 9.3 9.4-12.3 fL Neutrophils Percent Auto 60.4 45-73 % Imm Gran Pct Auto 0.3 0.0-0.4 % Lymphocytes Percent Auto 24.4 20-40 % Monocytes Percent Auto 9.7 2-11 % Eosinophils Percent Auto 3.4 0-4 % Basophils Percent Auto 1.8 0-2 % NRBC Pct Auto 0.0 0.0-0.2 /100WBC Neutrophils Absolute Auto 4.3 2.0-8.3 x10*3/u L Imm Gran Abs Auto 0.02 0.00-0.03 X10*3/uL Lymphocytes Absolute Auto 1.7 1.2-4.9 X10*3/u L Monocytes Absolute Auto 0.7 0.1-1.2 X10*3/uL Eosinophils Absolute Auto 0.2 0.0-0.4 X10*3/u L Basophils Absolute Auto 0.1 0.0-0.2 X10*3/uL NRBC Abs Auto 0.000 0.0-0.012 X10*3/uL Comprehensive [place]. Panel Fa Reviewed date:10/21/2024 11:20:50 AM Interpretation:Abnormal Performing Lab:[address] [phone] Notes/Report: Sodium 138 135-145 mmol/L Potassium 5.0 3.3-5.1 mmol/L Chloride 107 96-108 mmol/L Carbon Dioxide 27 22-29 mmol/L Anion Gap 9 12-20 Blood Urea Nitrogen 15 9-16 mg/dL Creatinine 0.87 0.5-1.4 mg/dL Estimated Glomerular Filt Rate > 60 Chronic Kidney Disease: Estimated GFR < 60 mL/min/1.73m2 Severe Kidney Disease: Estimated GFR < 15 mL/min/1.73m2 Glucose Fasting 115 60-99 mg/dL A fasting glucose from 100-125 mg/dl is considered impaired (pre-diabetes). Calcium 9.3 8.4-10.2 mg/dL Bilirubin Total 0.3 0.0-1.0 mg/dL Aspartate Amino Transferase 30 5-31 U/L Alanine Aminotransferase 17 0-31 U/L Total Protein 7.4 6.5-8.0 g/dL Albumin Level 4.2 3.5-5.0 g/dL Alkaline Phosphatase 69 39-117 U/L Lipid Panel Reviewed date:10/21/2024 11:20:50 AM Interpretation:Normal Performing Lab:[facility], [address] [place] [phone] Notes/Report: Triglycerides 68 <150 mg/dL Desirable Triglyceride: less than 150 mg/dL Borderline High Triglyceride 150-199 mg/dL High Triglyceride: 200-499 mg/dL Very High Triglyceride: greater than or equal to 5OO mg/dL Cholesterol 209 <200 mg/dL Desirable Cholesterol: less than 200 mg/dL Borderline High Cholesterol: 200-239 mg/dL High Cholesterol: greater than 239 mg/dL LDL Cholesterol Calculated 117 <100 mg/dL Desirable LDL: less than 100 mg/dL Near Optimal/Above Optimal LDL: 110-129 mg/dL Borderline High LDL: 130-159 mg/dL High LDL: 160-189 mg/dL Very High LDL: greater than or equal to 190 mg/dL HDL Cholesterol 79 >40 mg/dL Desirable HDL: greater than 40 mg/dL Note: This HDL assay may give artificially low results in patients with liver disease. Amylase Reviewed date:10/21/2024 11:20:50 AM Interpretation:Abnormal Performing Lab:[facility], [address] [place] [phone] Notes/Report: Amylase 112 28-100 U/L Lipase Reviewed date:10/21/2024 11:20:50 AM Interpretation:Normal Performing Lab:[facility], [address] [place] [phone] Notes/Report: Lipase 76 8-78 U/L Thyroid Stimulating Hormone Reviewed date:10/21/2024 11:23:51 AM Interpretation:Abnormal Performing Lab:[facility], [address] [place] [phone] Notes/Report: Thyroid Stimulating Hormone 4.38 0.32-4.0 uIU/ mL Note: A sustained TSH level above 2.5 uIU/mL may warrant further investigation. 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 ([id number]) Problem Retinal detachment, left (H33.22) Active confirmed 61632685 Problem Hypercholesterolemia (E78.00) Active confirmed 28232386 Problem Pancreatic abnormali ty (Q45.3) Active confirmed 1149860 VITAL SIGNS Blood pressure diastolic 70 mm Hg 07/30/2024 Height 63.00 in 07/30/2024 Blood pressure systolic 136 mm Hg 07/30/2024 Weight 115 lbs 07/30/2024 BMI 20.37 kg/m2 07/30/2024 Encounters Encounter Location Date Provider Diagnosis Agus Recio DO, [facility] [address] [place], [place] [id number] 01/29/2024 Agus Recio Hypercholesterolemia E78.00 and Weight loss R63.4 Agus Recio DO, [facility] [address] [place], [place] [id number] 07/30/2024 Agus Recio Pancreatic abnormali ty Q45.3 ; Weight loss R63.4 ; Nicotine dependence, unspecified, uncomplicated F17.200 and Hypercholesterolemia E78.00 Agus Recio DO, [facility] [address] [place], [place] [id number] 09/12/2024 Agus Recio ASSESSMENTS Encounter Date Diagnosis [...] TREATMENT Pending Test Test Name Order Date CT chest wo/w con 07/30/2024 CT abdomen pelvis w con 07/30/2024 Insurance Providers Payer Name Payer Address Payer Phone Subscriber Number Group Number Insured Name Patient Relationship to Insured Coverage Start Date Coverage End Date [facility] MEDIC[facility] COMPLETE [address] [address] [place] [phone] [id number] Linda Sorto Self - patient is the insured MEDICARE [address] [place] [phone] [id number] Linda Sorto Self - patient is the insured MEDICAL (GENERAL) HISTORY Medical History History ICD Code hypercholesterolemia fibromyalgia left patellar fracture retinal detachment OS cataracts Weight loss R63.4 Pancreatic abnormality Q45.3 Surgical History Surgery Date(Month/Year) wisdom teeth extraction section left patellar surgery retinal detachment repair OS times 3 cataract removal OS
--- OUTSIDE RECORDS SUMMARY | 2024-10-25 08:54 | XMS_ITS ---
Author Organization Agus Recio DO, FACEne Address [address] [facility] [place] [phone] Care Team Providers Care Quarter Section Ironer Name Role Phone Agus Recio Primary Care Provider REASON FOR VISIT 6 week f/u Encounters Encounter Location Date Provider Diagnosis Agus Recio DO, FACP [address] [place] [address] [place], [place] [phone] 09/12/2024 Agus Recio PLAN OF TREATMENT No Information
== END 2024-10-25 08:53 | disposition home or self-care (01) ==
LOC: HO.MAMMO 08:52
PROVIDERS: PCP Internal Medicine; Visit Provider Internal Medicine
DX: Z12.31 Encounter for screening mammogram for malignant neoplasm of breast (principal)
CPT/HCPCS: 77063; 77067

== ENCOUNTER → 2024-10-25 09:00 | Outpatient (BNV) | payer MEDICARE, SELFPAY | PROVIDERS: PCP Internal Medicine; Visit Provider Internal Medicine | DX: Z12.31 Encounter for screening mammogram for malignant neoplasm of breast (principal) | CPT/HCPCS: 77063; 77067 ==

== ENCOUNTER 2024-10-30 09:19 | Outpatient (REF) | payer MEDICARE, SELFPAY ==
--- OUTSIDE RECORDS SUMMARY | 2024-10-30 09:22 | XMS_ITS | Patient Health Record ---
Author Organization Agus Recio DO, FACP Address [address] [facility] [place] [id number] Care Team Providers Care Nurse Practical Name Role Phone Agus Recio Primary Care Provider [phone] ALLERGIES No Known Allergies RESULTS Component Value Reference Range Notes Complete Blood Count Auto Di ff Reviewed date:03/26/2024 10:56:48 AM Interpretation:Abnormal Performing Lab:[facility], [address] [place] [phone] Notes/Report: White Blood Count 8.2 4.8-10.8 X10*3/uL [...] NRBC Abs Auto 0.000 0.0-0.012 X10*3/uL Comprehensive [place]. Panel Fa st Reviewed date:03/26/2024 12:02:20 PM Interpretation:Abnormal Performing Lab:[facility], [address] [place] [phone] Notes/Report: Sodium 141 135-145 mmol/L Potassium 4.0 3.3-5.1 mmol/L Chloride 106 96-108 mmol/L Carbon Dioxide 26 22-29 mmol/L Anion Gap 13 12-20 Blood Urea Nitrogen 15 9-16 mg/dL Creatinine 0.83 0.5-1.4 mg/dL Estimated Glomerular Filt Rate > 60 NOTE: For -[place] individuals, multiply the result by 1.210. Chronic [...] Panel Reviewed date:03/26/2024 12:02:20 PM Interpretation:Abnormal Performing Lab:[facility], [address] [place] [phone] Notes/Report: Triglycerides 102 <150 mg/dL Desirable Triglyceride: [...] Hormone Reviewed date:03/26/2024 12:02:36 PM Interpretation:Abnormal Performing Lab:[facility], [address] [place] [phone] Notes/Report: Thyroid Stimulating Hormone 4.41 0.32-4.0 uIU/ mL Note: A sustained TSH level above 2.5 uIU/mL may warrant further investigation. TSH 3rd Generation ([facility]) Complete Blood Count Auto Di ff Reviewed date:10/21/2024 10:23:08 AM Interpretation:Normal Performing Lab:[facility], [address] [place] [phone] Notes/Report: White Blood Count 7.0 4.8-10.8 X10*3/uL [...] NRBC Abs Auto 0.000 0.0-0.012 X10*3/uL Comprehensive [place]. Panel Fa Reviewed date:10/21/2024 11:20:50 AM Interpretation:Abnormal Performing Lab:[address] [phone] Notes/Report: Sodium 138 135-145 mmol/L Potassium 5.0 [...] Panel Reviewed date:10/21/2024 11:20:50 AM Interpretation:Normal Performing Lab:[facility], [address] [place] [phone] Notes/Report: Triglycerides 68 <150 mg/dL Desirable Triglyceride: [...] Amylase Reviewed date:10/21/2024 11:20:50 AM Interpretation:Abnormal Performing Lab:[facility], [address] [place] [phone] Notes/Report: Amylase 112 28-100 U/L Lipase Reviewed date:10/21/2024 11:20:50 AM Interpretation:Normal Performing Lab:[facility], [address] [place] [phone] Notes/Report: Lipase 76 8-78 U/L Thyroid Stimulating Hormone Reviewed date:10/21/2024 11:23:51 AM Interpretation:Abnormal Performing Lab:[facility], [address] [place] [phone] Notes/Report: Thyroid Stimulating Hormone 4.38 0.32-4.0 uIU/ [...] Problem Weight loss (R63.4) Active confirmed 89 [id number] Problem Nicotine dependence, unspecified, uncomplicated (F17.200) Active confirmed Toba retail account manager user ([id number]) Problem Retinal detachment, left (H33.22) Active confirmed [id number] Problem Hypercholesterolemia (E78.00) Active confirmed [id number] Problem Pancreatic abnormali ty (Q45.3) Active confirmed 9999924 VITAL SIGNS Blood pressure diastolic 70 mm Hg 07/30/2024 Height 63.00 in 07/30/2024 Blood pressure systolic 136 mm Hg 07/30/2024 Weight 115 lbs 07/30/2024 BMI 20.37 kg/m2 07/30/2024 Encounters Encounter Location Date Provider Diagnosis Agus Recio DO, [facility] [address] [place], [place] [id number] 01/29/2024 Agus Recio Hypercholesterolemia E78.00 and Weight loss R63.4 Agus Recio DO, [facility] [address] [place], [place] [id number] 07/30/2024 Agus Recio Pancreatic abnormali ty Q45.3 ; Weight loss R63.4 ; Nicotine dependence, unspecified, uncomplicated F17.200 and Hypercholesterolemia E78.00 Agus Recio DO, [facility] [address] [place], [place] [id number] 09/12/2024 Agus Recio ASSESSMENTS Encounter Date Diagnosis [...] Insured Coverage Start Date Coverage End Date [facility] MEDICARE COMPLETE [address] [address] [place] [address] [id number] Linda Sorto Self - patient is the insured MEDICARE [address] [place] [phone] [id number] Linda Sorto Self - patient is the insured MEDICAL (GENERAL) HISTORY Medical History History ICD Code hypercholesterolemia fibromyalgia left patellar fracture retinal detachment OS cataracts Weight loss R63.4 Pancreatic abnormality Q45.3 Surgical History Surgery Date(Month/Year) wisdom teeth extraction section left patellar surgery retinal detachment repair OS times 3 cataract removal OS
--- OUTSIDE RECORDS SUMMARY | 2024-10-30 09:22 | XMS_ITS ---
Author Organization Agus Recio DO, FACP Address [address] [facility] [address] [address] [place] [phone] Care Team Providers Care Facilities Flight Check Pilot Name Role Phone Agus Recio Primary Care [...] Date Provider Diagnosis Agus Jim Hemal DO, [address] [id number] 07/30/2024 Agus Recio Pancreatic abnormali ty Q45.3 [...]
--- OUTSIDE RECORDS SUMMARY | 2024-10-30 09:22 | XMS_ITS ---
Author Organization Agus Recio DO, FACEne Address [address] [facility] [place] [id number] Care Team Providers Care Certified Flight Instructor Name Role Phone Agus Recio Primary Care Provider REASON FOR VISIT 6 week f/u Encounters Encounter Location Date Provider Diagnosis Agus Recio DO, FACP [address] [place] [address] [place], [place] [phone] 09/12/2024 Agus Recio PLAN OF TREATMENT No Information
--- OUTSIDE RECORDS SUMMARY | 2024-10-30 09:22 | XMS_ITS ---
Author Organization Agus Recio DO, FACP Address [address] [facility] [address] [address] [place] [phone] Care Team Providers Care Ed Educational Aide Name Role Phone Agus Recio Primary Care Provider [phone] ALLERGIES No Known Allergies REASON FOR VISIT [...] Location Date Provider Diagnosis Agus Recio DO, [address] [id number] 01/29/2024 Agus Recio Hypercholesterolemia E78.00 and Weight [...] General Examination GENERAL APPEARANCE: in no ac tatitlek distress, well developed, well nourished HEAD: normocephalic, atrau matic NECK/THYROID: neck supple, thyroid normal, no cervical lymphadenopathy HEART: no murmurs, regular rate and rhythm, S1, S2 normal LUNGS: clear to auscultatio n bilaterally ABDOMEN: normal, bowel sounds present, soft, nontender, nondistended SKIN: warm and dry EXTREMITIES: no edema PSYCH: alert, oriented, cog nitive function intact
--- OUTSIDE RECORDS SUMMARY | 2024-10-30 09:22 | XMS_ITS | Patient Health Record ---
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) Active confirmed [id number] Encounters Encounter Location Date Provider Diagnosis [facility] [address] [place] [address] 09/22/2024 Mc Cheung Jr PLAN OF TREATMENT Pending Test Test Name Order Date LIVER PROFILE 12/04/2022 AMYLASE 12/04/2022 LIPASE 12/04/2022 CBC w/o DIFF 12/04/2022 MRI ABD W&WO CONTRAST 12/08/2022 Future Test Test Name Order Date COLONOSCOPY 06/16/2015 Next Appt Details Provider Name:Mc montgomery Jr, 12/08/2024 11:20:00 AM, [address], [address], [place], [address], Insurance Providers Payer Name Payer Address Payer Phone Subscriber Number Group Number Insured Name Patient Relationship to Insured Coverage Start Date Coverage End Date [facility] [address] [place] [address] [id number] NATALIO MCINTYRE Self - patient is the insured MEDICAL (GENERAL) HISTORY Medical History History ICD Code elevated cholesterol Colonoscopy 10/20/15, normal, ten-year f [facility] Surgical History Surgery Date(Month/Year) knee surgery
[2024-10-30] MEDS: iohexoL 350 MG/ML 75 ML INFUS..BTL 85 ML IV (10:34)
== END 2024-10-30 09:20 | disposition home or self-care (01) ==
LOC: HO.CT 09:19
PROVIDERS: PCP Internal Medicine; Visit Provider Internal Medicine
DX: Q45.3 Other congenital malformations of pancreas and pancreatic duct (principal); R63.4 Abnormal weight loss
CPT/HCPCS: 71260; 74178; Q9967

== ENCOUNTER → 2024-10-30 09:22 | Outpatient (BNV) | payer MEDICARE, SELFPAY | PROVIDERS: PCP Internal Medicine; Visit Provider Radiology Diagnostic Radiology | DX: K86.9 Disease of pancreas, unspecified (principal); R63.4 Abnormal weight loss | CPT/HCPCS: 71260; 74178 ==

== ENCOUNTER 2024-12-03 14:33 | Outpatient (AMB) | payer MEDICARE, SELFPAY ==
--- NOTE | 2024-12-03 14:43 | A.OFFPC_ITS ---
Vital Signs 12/03/24 14:49 Height 63 ft Weight 114 lb BMI 0.1 BP 134/66 Blood Pressure Location Rt brachial Pulse 74 Pulse Source Pulse Oximeter Pulse Oximetry (%) 98 Intake Visit Reasons: Dislocated intraoccular lens Intake Note: had a ct scan done end of October and would like the results regarding her pacrease Allergies No Known Allergies Allergy (Verified 12/03/24 15:17) Medication List - Last Reconciled 12/03/24 by Clair Downing PA-C atorvastatin 10 mg PO DAILY latanoprostene bunod 0.024% (Vyzulta) 1 drp ophthalmic (eye) DAILY multivitamin 1 tab PO DAILY PFSH Medical History (Updated 12/03/24 @ 15:28 by Clair Downing PA-C) History of mammogram (~10/25/24) Retinal detachment Mild hypercholesterolemia Surgical History History of left knee surgery History of detached retina repair Social History Alcohol intake: current Alcohol intake frequency: holidays/special occasions only Patient Tobacco Use Status: Current everyday Tobacco user Physical exam (Primary Care) Vital Signs: Last Vital Signs Pulse 74 12/03/24 14:49 BP 134/66 12/03/24 14:49 Pulse Ox 98 12/03/24 14:49 Care Plan Goal for BP management: <130/80 BMI result Body Mass Index 0.1 Tobacco/Smoking Status: Tobacco use Status Patient Tobacco Use Status Current everyday Tobacco 12/03/24 14:55 Coding Level of Care Code New Pt Level 4 (16659) Complex EM visit Add On G2211 Diagnoses Retinal detachment H33.20 Mild hypercholesterolemia E78.00 Elevated TSH R79.89 Pre-operative clearance Z01.818 Assessment & Plan Assessment & Plan (1) Retinal detachment: Code(s): H33.20 - Serous retinal detachment, unspecified eye Category: Medical Plan: Patient going to have surgery on Sunday12/10/2024. She is here for preop clearance. She recently had normal labs in October of 2024. Regarding preop clearance, the patient is at acceptable risk for proposed surgery. Reviewed with the patient that no surgery is completely free of wrist and that this examination is to assist the surgeon in reviewing informed consent. (2) Mild hypercholesterolemia: Code(s): E78.00 - Pure hypercholesterolemia, unspecified Category: Medical Plan: Continue atorvastatin 10 mg daily. Condition is chronic and stable will reassess at next visit with labs. (3) Elevated TSH: Code(s): R79.89 - Other specified abnormal findings of blood chemistry Category: Medical Plan: Patient had mild elevation TSH will need reflex T4. Will order labs and reassess for next visit. Patient denies any thyroid related complaints. Will continue to monitor (4) Pre-operative clearance: Code(s): Z01.818 - Encounter for other preprocedural examination Category: Medical Plan Plan - Evaluate and clear the patient for upcoming lens replacement surgery. - Discuss ordering A1c testing to assess blood glucose control and potential diabetes risk and reassess TSH level at the next appointment. - Recommend annual thyroid function reassessment. - Schedule colonoscopy with Dr. Cheung as routine preventive care. Patient Instructions: Patient Instructions - Proceed with scheduled eye surgery on December 10, 2024. You have been cleared for surgery today. - Monitor your diet, focusing on reducing sugar intake to manage glucose levels. - Schedule follow-up appointment for A1c testing to assess blood glucose and discuss thyroid function. - Arrange routine colonoscopy with Dr. Cheung. - Contact us if experiencing new symptoms such as significant weight change, abdominal pain, or excessive urination and thirst. Scribe Plan - Not visible on output: History of Present Illness The patient is a 74-year-old female presenting for preoperative clearance for lens replacement surgery. The patient's medical history includes a detached retina which occurred ten years ago, and currently, she has a dislocated lens. She is scheduled for lens replacement surgery on December 10, 2024, with the [facility] in [place]. A history of high cholesterol is noted, for which the patient takes a low dose of atorvastatin 10 mg. Fibromyalgia is mentioned, although it is resolved now and not currently causing issues. Previously, there was a concern regarding the pancreas appearing elongated on imaging, but further evaluation by Dr. Cheung and a subsequent CT scan revealed no abnormalities, and this issue has been resolved. Despite a history of weight loss, recent diagnostic imaging showed no pancreatic masses or duct abnormalities. Additionally, the patient has an increased glucose level, with concerns for potential diabetes, though no diagnosis is confirmed. There is also a noted minor elevation in thyroid function that has not necessitated intervention. Patient is not on any other medications other than atorvastatin and multivitamins daily. Social History - Reports being physically active and appears well despite age. - Mentions weight is stable, despite eating freely. - Proudly noted by others for youthful appearance. Review of Systems - General: Reports stable weight. - Gastrointestinal: Denies nausea, vomiting, or significant weight loss. - Endocrine: Reports stable energy levels, denies excessive thirst or urination. Physical Exam Appearance: Alert. Oriented X3. No acute distress. Head: Normal external exam. Normocephalic. Atraumatic. Eyes: Dislocated lens noted. Pupils are equal, round, and reactive to light. Extraocular movements intact. Conjunctiva and sclera normal. Eyelids normal. Ears: External auditory canal normal. Tympanic membranes normal. Throat: Pharynx normal. Uvula midline. Moist mucous membranes. Neck: Normal inspection. Neck supple. Full range of motion. No adenopathy. Thyroid Normal. No meningeal signs. No neck mass noted. Cardiovascular: Normal heart rate and rhythm. Heart sound normal. No murmurs noted. Pulses normal throughout. Respiratory: No respiratory distress. Painless inspiration. Breath sounds normal. No wheezes/rales/rhonchi noted. Chest nontender. No accessory muscle usage noted or decreased air movement noted. Abdomen: Soft and nontender. Bowel sounds normal in all 4 quadrants. No distention noted. No organomegaly noted. No visible injury noted. Back: No costovertebral angle tenderness. Full range of motion noted. Skin: Skin warm and dry. Normal skin color. Normal skin turgor. No rashes/lesions/lacerations noted. Extremities: No lower extremity edema. Extremities exhibit normal range of motion. Extremities nontender. Neuro: Oriented X 3. No motor deficit. No sensory deficit. Reflexes normal. Results - Labs: Previous blood work normal with elevated glucose and elevated TSH will have to be reassess at next visit. - Imaging: CT scan shows unremarkable pancreas, ducts of normal size, no mass or inflammation noted. Plan - Evaluate and clear the patient for upcoming lens replacement surgery. - Discuss ordering A1c testing to assess blood glucose control and potential diabetes risk and reassess TSH level at the next appointment. - Recommend annual thyroid function reassessment. - Schedule colonoscopy with Dr. Cheung as routine preventive care. Patient was informed and verbally consented to the use of an ambient scribe for clinic note documentation during this visit. Discussion Notes I confirmed the patient's clearance for the impending lens replacement surgery scheduled for December 10, 2024, ensuring no recent health concerns would impede the procedure. We discussed prior thyroid function and glucose levels, determining further assessment upon follow-up is prudent. An A1c test will be arranged to thoroughly assess glucose management. No current symptoms suggested immediate concerns regarding pancreatic health, thus requiring no additional intervention. The patient agreed to proceed with these plans and follow dietary recommendations for glucose control. Patient Instructions - Proceed with scheduled eye surgery on December 10, 2024. You have been cleared for surgery today. - Monitor your diet, focusing on reducing sugar intake to manage glucose levels. - Schedule follow-up appointment for A1c testing to assess blood glucose and discuss thyroid function. - Arrange routine colonoscopy with Dr. Cheung. - Contact us if experiencing new symptoms such as significant weight change, abdominal pain, or excessive urination and thirst.
[2024-12-03 14:49] VITALS: BP 134/66; PULSE 74; O2SAT 98
--- OUTSIDE RECORDS SUMMARY | 2024-12-03 16:44 | XMS_ITS ---
Author Organization Agus Recio DO, FACP Address [address] [place] [phone] Care Team Providers Care Regional Sales Representative Name Role Phone Agus Recio Primary Care [...] Date Provider Diagnosis Agus Jim Hemal DO, [address] [phone] 07/30/2024 Agus Recio Pancreatic abnormali ty Q45.3 [...]
--- OUTSIDE RECORDS SUMMARY | 2024-12-03 16:44 | XMS_ITS ---
Author Organization Agus Recio DO, FACP Address [address] [facility] [place] [id number] Care Team Providers Care Automobile Designer Name Role Phone Agus Recio Primary Care Provider Encounters Encounter Location Date Provider Diagnosis Agus Recio DO, FACP [address] [facility] [place] [phone] 11/11/2024 Agus Recio PLAN OF TREATMENT No Information
--- OUTSIDE RECORDS SUMMARY | 2024-12-03 16:44 | XMS_ITS | Patient Health Record ---
Author Organization Agus Recio DO, FACP Address [address] [facility] [place] [id number] Care Team Providers Care Coating Line Worker Name Role Phone Agus Recio Primary Care Provider ALLERGIES No Known Allergies RESULTS Component Value Reference Range Notes Complete Blood Count Auto Di ff Reviewed date:03/26/2024 10:56:48 AM Interpretation:Abnormal Performing Lab:[facility], [address] [place] [phone] Notes/Report: White Blood Count 8.2 4.8-10.8 X10*3/uL [...] NRBC Abs Auto 0.000 0.0-0.012 X10*3/uL Comprehensive [place]. Panel Fa st Reviewed date:03/26/2024 12:02:20 PM Interpretation:Abnormal Performing Lab:[facility], [address] [place] [phone] Notes/Report: Sodium 141 135-145 mmol/L Potassium 4.0 3.3-5.1 mmol/L Chloride 106 96-108 mmol/L Carbon Dioxide 26 22-29 mmol/L Anion Gap 13 12-20 Blood Urea Nitrogen 15 9-16 mg/dL Creatinine 0.83 0.5-1.4 mg/dL Estimated Glomerular Filt Rate > 60 NOTE: For -[place] individuals, multiply the result by 1.210. Chronic [...] Panel Reviewed date:03/26/2024 12:02:20 PM Interpretation:Abnormal Performing Lab:[facility], [address] [place] [phone] Notes/Report: Triglycerides 102 <150 mg/dL Desirable Triglyceride: [...] Hormone Reviewed date:03/26/2024 12:02:36 PM Interpretation:Abnormal Performing Lab:[facility], [address] [place] [phone] Notes/Report: Thyroid Stimulating Hormone 4.41 0.32-4.0 uIU/ mL Note: A sustained TSH level above 2.5 uIU/mL may warrant further investigation. TSH 3rd Generation ([facility]) Complete Blood Count Auto Di ff Reviewed date:10/21/2024 10:23:08 AM Interpretation:Normal Performing Lab:[facility], [address] [place] [phone] Notes/Report: White Blood Count 7.0 4.8-10.8 X10*3/uL [...] NRBC Abs Auto 0.000 0.0-0.012 X10*3/uL Comprehensive [place]. Panel Fa Reviewed date:10/21/2024 11:20:50 AM Interpretation:Abnormal Performing Lab:[address] [phone] Notes/Report: Sodium 138 135-145 mmol/L Potassium 5.0 [...] Panel Reviewed date:10/21/2024 11:20:50 AM Interpretation:Normal Performing Lab:[facility], [address] [place] [phone] Notes/Report: Triglycerides 68 <150 mg/dL Desirable Triglyceride: [...] Amylase Reviewed date:10/21/2024 11:20:50 AM Interpretation:Abnormal Performing Lab:[facility], [address] [place] [phone] Notes/Report: Amylase 112 28-100 U/L Lipase Reviewed date:10/21/2024 11:20:50 AM Interpretation:Normal Performing Lab:[facility], [address] [place] [phone] Notes/Report: Lipase 76 8-78 U/L Thyroid Stimulating Hormone Reviewed date:10/21/2024 11:23:51 AM Interpretation:Abnormal Performing Lab:[facility], [address] [place] [phone] Notes/Report: Thyroid Stimulating Hormone 4.38 0.32-4.0 uIU/ mL Note: A sustained TSH level above 2.5 uIU/mL may warrant further investigation. TSH 3rd Generation ([facility]) MM tomosynthesis screening B I (Not yet reviewed by provider) Interpretation: Performing Lab: Notes/Report: [facility] [address] [place] [address] Mammography Report Signed Patient: Linda Sorto MR#: [id number] : 1950 Acct:[id number] Age/Sex: 74 / F ADM Date: 10/25/24 Loc: [email or web address] Attending Dr: Agus Recio DO Ordering Physician: Agus Recio DO Results: 1Negat karri Date of Service: 10/25/24 Follow Up: 1 Year From [facility] ina Mammogram Procedure(s): MM tomosynthesis screening BI Accession Number(s): [id number] cc: Agus Recio DO EXAMINATION: MM SCREENING DIGITAL BREAST TOMOSYNTHESIS, BILATERAL CLINICAL INFORMATION: Screening. Asymptomatic. COMPARISON: Mammography: Comparison is made with available priors TECHNIQUE: Digital breast mammography with tomosynthesis is performed in both the craniocaudal and mediolateral oblique views along with computer-aided detection (CAD). FINDINGS: The breasts are heterogeneously dense, which may obscure small masses (ACR BI-RADS breast composition Category c). There are no significant masses, abnormal calcifications, or other abnormalities. MM/MM tomosynthesis screening BI IMPRESSION: No mammographic evidence of malignancy. ASSESSMENT: BI-RADS BI-RADS 1 - Negative RECOMMENDATION: Routine annual mammography screening. 1 year F/U This examination should not preclude the clinical evaluation of a suspicious palpable abnormality. This patient's information was entered into a reminder system with a target due date for their next mammogram. Electronically signed by: Elda Hill DO 11/06/2024 08:08 AM EST RP Dictated By: Elda Hill DO Signed By: <Electronically signed by Elda Hill DO in OV> 11/06/24 0808 DD/ 0855 TD/TT: 10/25/24 0905 Rope Making Machine Operator: REASON FOR REFERRAL Reason Hearing evaluation Diagnosis [...] Problem Weight loss (R63.4) Active confirmed 89 361240 Problem Nicotine dependence, unspecified, uncomplicated (F17.200) Active confirmed Toba account representative user ([id number]) Problem Retinal detachment, left (H33.22) Active confirmed 84896043 Problem Hypercholesterolemia (E78.00) Active confirmed [id number] Problem Pancreatic abnormali ty (Q45.3) Active confirmed 0735491 VITAL SIGNS Blood pressure diastolic 70 mm Hg 07/30/2024 Height 63.00 in 07/30/2024 Blood pressure systolic 136 mm Hg 07/30/2024 Weight 115 lbs 07/30/2024 BMI 20.37 kg/m2 07/30/2024 Encounters Encounter Location Date Provider Diagnosis Agus Hernán Hemal NAGY, [facility] [address] [place], [place] [id number] 01/29/2024 Agus Recio Hypercholesterolemia E78.00 and Weight loss R63.4 Agus Recio DO, [facility] [address] [place], [place] [phone] 07/30/2024 Agus Recio Pancreatic abnormali ty Q45.3 ; Weight loss R63.4 ; Nicotine dependence, unspecified, uncomplicated F17.200 and Hypercholesterolemia E78.00 Agus Recio DO, [facility] [address] [place], [place] [id number] 11/11/2024 Agus Recio DO, [facility] [address] [place], [place] [id number] 09/12/2024 Agus Recio ASSESSMENTS Encounter Date Diagnosis [...] 07/30/2024 CT abdomen pelvis w con 07/30/2024 MM tomosynthesis screening BI 10/25/2024 Insurance Providers Payer Name Payer Address Payer Phone Subscriber Number Group Number Insured Name Patient Relationship to Insured Coverage Start Date Coverage End Date [employer] MEDICARE COMPLETE [address] [address] [place] [phone] [id number] Linda Sorto Self - patient is the insured MEDICARE [address] [place] [phone] [id number] Linda Sorto Self - patient is the insured MEDICAL (GENERAL) HISTORY Medical History History ICD Code hypercholesterolemia fibromyalgia left patellar fracture retinal detachment OS cataracts Weight loss R63.4 Pancreatic abnormality Q45.3 Surgical History Surgery Date(Month/Year) wisdom teeth extraction section left patellar surgery retinal detachment repair OS times 3 cataract removal OS
--- OUTSIDE RECORDS SUMMARY | 2024-12-03 16:44 | XMS_ITS | Patient Health Record ---
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 confirmed [id number] Encounters Encounter Location Date Provider Diagnosis [facility] [address] [place] [address] 09/22/2024 Mc Cheung Jr PLAN OF TREATMENT Pending Test Test Name Order Date LIVER PROFILE 12/04/2022 AMYLASE 12/04/2022 LIPASE 12/04/2022 CBC w/o DIFF 12/04/2022 MRI ABD W&WO CONTRAST 12/08/2022 Future Test Test Name Order Date COLONOSCOPY 06/16/2015 Next Appt Details Provider Name:Mc montgomery Jr, 12/08/2024 11:20:00 AM, [address], [address], [place], [address], Insurance Providers Payer Name Payer Address Payer Phone Subscriber Number Group Number Insured Name Patient Relationship to Insured Coverage Start Date Coverage End Date [facility] [address] [address] [place] [id number] NATALIO MCINTYRE Self - patient is the insured MEDICAL (GENERAL) HISTORY Medical History History ICD Code elevated cholesterol Colonoscopy 10/20/15, normal, ten-year f [facility] Surgical History Surgery Date(Month/Year) knee surgery
--- OUTSIDE RECORDS SUMMARY | 2024-12-03 16:44 | XMS_ITS ---
Author Organization [facility] Address [address] [place] [address] Care Team Providers Care Platform Supervisor Name Role Phone Hemal (RETIRED) Agus NAGY Primary Care Provid er Unavailable Mc Cheung Jr REASON FOR VISIT Patient presents today for ELEVATED PANCREATIC ENZYMES Encounters Encounter Location Date Provider Diagnosis [facility] [address] [place] [address] 09/22/2024 Mc Cheung Jr PLAN OF TREATMENT Next Appt Details Provider Name:Mc montgomery Jr, 12/08/2024 11:20:00 AM, [address] [facility], [address], [place], [address],
--- OUTSIDE RECORDS SUMMARY | 2024-12-03 16:44 | XMS_ITS ---
Author Organization Agus Recio DO, FACEne Address [address] [facility] [facility] [place] [id number] Care Team Providers Care Newspaper Subscription Solicitor Name Role Phone Agus Recio Primary Care Provider [phone] REASON FOR VISIT 6 week f/u Encounters Encounter Location Date Provider Diagnosis Agus Recio DO, FACP [address] [place] [address] [place] [phone] 09/12/2024 Agus Recio PLAN OF TREATMENT No Information
== END 2024-12-03 15:18 | disposition home or self-care (01) ==
LOC: HO.HMCSH 14:33
PROVIDERS: PCP Internal Medicine; Visit Provider Physician Assistant Medical
DX: H33.20 Serous retinal detachment, unspecified eye (principal); E78.00 Pure hypercholesterolemia, unspecified; R79.89 Other specified abnormal findings of blood chemistry; Z01.818 Encounter for other preprocedural examination

== ENCOUNTER → 2024-12-03 14:33 | Outpatient (BNVA) | payer MEDICARE, SELFPAY | PROVIDERS: PCP Internal Medicine; Visit Provider Physician Assistant Medical | DX: Z01.818 Encounter for other preprocedural examination (principal); H33.20 Serous retinal detachment, unspecified eye; E78.00 Pure hypercholesterolemia, unspecified; R79.89 Other specified abnormal findings of blood chemistry | CPT/HCPCS: 99202 ==

== ENCOUNTER 2025-05-05 08:56 | Outpatient (AMB) | payer MEDICARE, SELFPAY ==
--- NOTE | 2025-05-05 09:07 | A.OFFPC_ITS ---
Vital Signs 05/05/25 09:18 Height 5 ft 3 in Weight 108 lb BMI 19.1 BP 130/80 Blood Pressure Location Lt brachial Pulse 60 Pulse Source Pulse Oximeter Temp 97.2 F Pulse Oximetry (%) 95 Intake Visit Reasons: Physical Intake Note: worried that she has been loosing weight over the past three years and not trying to loose any. Allergies No Known Allergies Allergy (Verified 05/05/25 09:54) Medication List - Last Reconciled 05/05/25 by Clair Downing PA-C atorvastatin 10 mg PO DAILY multivitamin 1 tab PO DAILY Tobacco use date assessed: 05/05/25 Fall risk assessment: No Falls in past year Dental Screening Dental Screen Date: 05/05/25 Did you have a dental visit in the last 12 months?: Yes Did you have a dental problem in the last 6 months where you did not have access to dental care?: No Was dental information given to patient?: No HPI Physical HPI Details The patient is a 75-year-old female presenting for an annual wellness visit. The patient had a colonoscopy in 2014 and is due for another in October of this year. She has not yet been scheduled for the procedure but expects to be notified by the healthcare provider. Her blood work from October 2024 showed a normal complete blood count with no anemia, normal kidney function, but a slightly elevated fasting glucose level. An A1c test has not been performed, and it was decided to have it checked during this visit. Patient is concerned that she has been losing weight for many years and has not been trying to lose weight. Reports that she eats well and can not keep the weight on. She denies any nausea, vomiting, abdominal pain, black or bloody stools or abnormal bowel habits or any other symptoms at this time. She denies any acute symptoms. Social history Patient lives with her We spoke about living will and patient would like to be full code and her to be her healthcare proxy. Paperwork filled out today. [facility], [facility] Medical History (Updated 05/05/25 @ 10:06 by Clair Downing PA-C) Patient has healthcare proxy (~05/05/25) Full code status (~05/05/25) Pure hypercholesterolemia, unspecified Hyperlipidemia Preventative health care Elevated amylase Pancreatic abnormality Cataracts, bilateral Fibromyalgia History of mammogram (~10/25/24) Retinal detachment Mild hypercholesterolemia Surgical History History of colonoscopy (~10/21/15) History of section History of cataract surgery History of left knee surgery History of detached retina repair Social History Housing: House Alcohol intake: current Alcohol intake frequency: holidays/special occasions only Tobacco use type: Cigarette Cigarettes Per Day: 5 Years Smoked: 50 years off and on e-Cigarette/Vaping Use: Never Used Second Hand Smoke Exposure: Yes service: No Current occupational exposures/hazards: No Questionnaire PHQ-9 Over the last 2 weeks, how often have you been bothered by any of the following problems? 1. Little interest or pleasure in doing things: not at all 2. Feeling down, depressed, or hopeless: not at all 3. Trouble falling or staying asleep, or sleeping too much: not at all 4. Feeling tired or having little energy: not at all 5. Poor appetite or overeating: not at all 6. Feeling bad about yourself - or that you are a failure or have let yourself or your family down: not at all 7. Trouble concentrating on things, such as reading the newspaper or watching television: not at all 8. Moving or speaking so slowly that other people could have noticed. Or the opposite - being so fidgety or restless that you have been moving around a lot more than usual: not at all 9. Thoughts that you would be better off or of hurting yourself in some way: not at all Total score: 0 Depression Screening Interpretation: Negative Depression Screening Done: Yes 14235 - PHQ-9 Billing: Yes Source: Developed by Drs. Agus Morton, Destiny Nichole, Jelani Fernandez and colleagues, with an educational homero from [employer]. Thrive Questionnaire Date Thrive assessed: 05/05/25 I am a: Patient What is your living situation today?: I have a steady place to live Within the past 12 months, did the food you bought not last and you didn't have the money to get more?: Never true Within the past 12 months, did you worry whether your food would run out before you got money to buy more?: Never true Do you have trouble paying for medicines?: No Do you have trouble getting transportation to medical appointments?: No Do you have trouble paying your heating and electricity bill?: No Do you have trouble taking care of your child, family member or friend?: No Do you have trouble with day-to-day activities such as bathing, preparing meals, shopping, managing finances, etc.?: No Are you currently unemployed and looking for a job?: No Are you interested in more education?: No THRIVE Score: 0 AUDIT C Alcohol Use Questionnaire (AUDIT-C) 1. How often do you have a drink containing alcohol?: 2-4 times a month 2. How many drinks containing alcohol do you have on a typical day when you are drinking?: 1 or 2 3. How often do you have six or more drinks on one occasion?: Never Total Score: 2 Score Reviewed/Action Taken: No AUDRA-7 AMB Questionnaire AUDRA-7 Date AUDRA - 7 assessed: 05/05/25 Feeling nervous, anxious, or on edge: 0 = Not at all Not being able to stop or control worryin = Not at all Worrying too much about different things: 0 = Not at all Trouble relaxin = Not at all Being so restless that it is hard to sit still: 0 = Not at all Becoming easily annoyed or irritable: 0 = Not at all Feeling afraid as if something awful might happen: 0 = Not at all Total AUDRA-7 score (0-4 normal; 5-9 mild; 10-14 moderate; 15-21 severe): 0 Source: Developed by Drs. Agus Morton, Destiny Nichole, Jelani Fernandez and colleagues, with an educational homero from [employer]. AUDRA-7 Assessment Billing AUDRA-7 Assessment Tool: AUDRA-7 Assessment 89319 Review of Systems Const All systems reviewed & are unremarkable except as noted in HPI and below Physical exam (Primary Care) Vital Signs: Last Vital Signs Temp 97.2 F 05/05/25 09:18 Pulse 60 05/05/25 09:18 BP 130/80 05/05/25 09:18 Pulse Ox 95 05/05/25 09:18 Care Plan Goal for BP management: <140/90 at Goal BMI result Body Mass Index 19.1 BMI Assessment/Plan discussion: High BMI High, discussed plan: lifestyle, weight reduction, dietary, physical activity and alcohol moderation Tobacco/Smoking Status: Tobacco use Status Tobacco use date assessed 05/05/25 05/05/25 09:21 Patient Tobacco Use Status 05/05/25 09:21 Tobacco use type Cigarette 05/05/25 09:21 e-Cigarette/Vaping Use Never Used 05/05/25 09:21 PHQ-9: PHQ-9 Score PHQ-9: Total score 0 05/05/25 09:21 Depression Screening Interpretation: Negative Thrive Assessment: Date of Thrive Assessment Date Thrive assessed 05/05/25 05/05/25 09:21 Advance Care Planning discussion: Completed/Scanned Date of discussion: 05/05/25 Forms completed: Health Care Proxy and MOLST Time spent: 1-15 minutes, not on file Actual minutes spent: 15 Did not discuss due to Cultural/Spiritual beliefs: No Const Other: Appearance: Alert. Oriented X3. No acute distress. Head: Normal external exam. Normocephalic. Atraumatic. Eyes: Pupils are equal, round, and reactive to light. Extraocular movements intact. Conjunctiva and sclera normal. Eyelids normal. Ears: External auditory canal normal. Tympanic membranes normal. Throat: Pharynx normal. Uvula midline. Moist mucous membranes. Neck: Normal inspection. Neck supple. Full range of motion. No adenopathy. Thyroid Normal. No meningeal signs. No neck mass noted. Cardiovascular: Normal heart rate and rhythm. Heart sound normal. No murmurs noted. Pulses normal throughout. Respiratory: No respiratory distress. Painless inspiration. Breath sounds normal. No wheezes/rales/rhonchi noted. Chest nontender. No accessory muscle usage noted or decreased air movement noted. Abdomen: Soft and nontender. Bowel sounds normal in all 4 quadrants. No distention noted. No organomegaly noted. No visible injury noted. Back: No costovertebral angle tenderness. Full range of motion noted. Skin: Skin warm and dry. Normal skin color. Normal skin turgor. No rashes/lesions/lacerations noted. Extremities: No lower extremity edema. Extremities exhibit normal range of motion. Extremities nontender. Neuro: Oriented X 3. No motor deficit. No sensory deficit. Reflexes normal. Results AMB Hemoglobin A1c AMB Hemoglobin A1c 5.9 % Last Edit by RIZWAN Matamoros on 05/05/25 10:00 Results Reviewed Results Reviewed: - Labs: Normal complete blood count, normal kidney function, elevated fasting glucose - colonoscopy reviewed patient is due this year October 2025 awaiting call from GI - patient due for mammogram she [facility] - patient has not had a DEXA scan in quite some time therefore ordered at this time - fasting labs ordered at this time to assess patient for anemia, kidney function, liver enzymes, cholesterol, vitamin-D, vitamin B12, folate, thyroid function Coding Level of Care Code Est Pt Level 4 (56196) Est Pt Prev Care >65y(21044) Diagnoses Annual physical exam Z00.00 Preventative health care Z00.00 Elevated TSH R79.89 Elevated amylase R74.8 Hyperlipidemia E78.5 Pure hypercholesterolemia, unspecified E78.00 Full code status Z78.9 Additional Codes PHQ-9 - 17385 - PHQ-9 Billing: Yes ([id number]) AUDRA-7 Assessment Billing - AUDRA-7 Assessment Tool: AUDRA-7 Assessment 50154 ([id number]) Vital Signs *Quality* - Advance Care Planning discussion: Completed/Scanned ([id number]) Vital Signs *Quality* - Time spent: 1-15 minutes, not on file ([id number]) Time Spent (min) 45 Assessment & Plan Assessment & Plan (1) Annual physical exam: Code(s): Z00.00 - Encounter for general adult medical examination without abnormal findings (2) Preventative health care: Code(s): Z00.00 - Encounter for general adult medical examination without abnormal findings Category: Medical Plan: The patient is due for a colonoscopy in October, and she expects to be notified by the healthcare provider for scheduling. (3) Elevated TSH: Code(s): R79.89 - Other specified abnormal findings of blood chemistry Category: Medical Plan: Patient will have repeat TSH level for assessment of prior elevated TSH. Denies any acute symptoms. Condition is chronic and stable will continue to monitor (4) Elevated amylase: Code(s): R74.8 - Abnormal levels of other serum enzymes Category: Medical Plan: Patient has a history of elevated amylase. Denies any abdominal pains or any other acute complaints. Will reassess with repeating liver enzymes and amylase. Condition is chronic and stable will continue to monitor. (5) Hyperlipidemia: Code(s): E78.5 - Hyperlipidemia, unspecified Category: Medical Plan: Patient to continue atorvastatin 10 mg daily. Condition is chronic and stable continue to monitor. (6) Pure hypercholesterolemia, unspecified: Code(s): E78.00 - Pure hypercholesterolemia, unspecified Category: Medical Plan: Patient to continue atorvastatin 10 mg daily. Condition is chronic and stable continue to monitor. (7) Full code status: Onset Date: ~05/05/25 Code(s): Z78.9 - Other specified health status Category: Medical Plan: MOLST form filled out today. Patient to discuss with family about her health care wishes/advanced care planning. Plan Plan Patient was informed and verbally consented to the use of an ambient scribe for clinic note documentation during this visit. 1. Preventative Care: Colonoscopy The patient is due for a colonoscopy in October, and she expects to be notified by the healthcare provider for scheduling. 2. Elevated Fasting Glucose The patient's fasting glucose was noted to be slightly elevated, A1c level 5.9 putting her in a prediabetic state. 3. Hyperlipidemia/hypercholesterolemia The patient will have fasting blood work done. Blood work ordered at this time for assessment. Patient to continue atorvastatin 10 mg daily. Condition is chronic and stable continue to monitor. 4. History of elevated amylase Patient denies frequent history of alcohol drinking, abdominal pain or any other symptoms related to this. 5. Advanced care planning Discussed with patient health care planning and she decided to be a full code. Her will be her healthcare proxy. Paperwork filled out and scanned into the patient's chart. Patient given original copies. During the visit, we discussed the patient's upcoming colonoscopy, which is due in October, and the need for an A1c test to evaluate her elevated fasting glucose levels. Orders: Orders Complete Blood Count Auto Diff Today Z00.00 - Encounter for general adult medical examination without abnormal findings Comprehensive [place]. Panel Fast Today Z00.00 - Encounter for general adult medical examination without abnormal findings Lipid Panel Today Z00.00 - Encounter for general adult medical examination without abnormal findings TSH reflex Free T4 Today Z00.00 - Encounter for general adult medical examination without abnormal findings Vitamin B12 and Folate Today Z00.00 - Encounter for general adult medical examination without abnormal findings C Reactive Protein Today Z00.00 - Encounter for general adult medical examination without abnormal findings Liver Panel Today Z00.00 - Encounter for general adult medical examination without abnormal findings Magnesium Today Z00.00 - Encounter for general adult medical examination without abnormal findings Vitamin D 25-OH Total Today Z00.00 - Encounter for general adult medical examination without abnormal findings Amylase Today R74.8 - Abnormal levels of other serum enzymes XR DEXA axial skeleton Today M81.0 - Age-related osteoporosis without current pathological fracture AMB Hemoglobin A1c Today Z13.9 - Encounter for screening, unspecified Patient Instructions: - Await notification for colonoscopy scheduling in October. - await notification for mammogram from the mammogram department - DEXA scan ordered at this time for evaluation of osteoporosis/osteopenia they will call you within 30 days to schedule an appointment - You decided to be a full code. Please speak to your and family about your advanced care planning. Also place her MOLST form on the refrigerator. - please under go fasting blood work. No appointment as scheduled you can walk- in to have your blood work done as the orders are in the system if you go to any [facility] laboratory.
[2025-05-05 09:18] VITALS: BP 130/80; PULSE 60; TEMP 36.2; O2SAT 95; BMI 19.1
== END 2025-05-05 09:52 | disposition home or self-care (01) ==
LOC: HO.HMCSH 08:56
PROVIDERS: PCP Internal Medicine; Visit Provider Physician Assistant Medical
DX: Z00.00 Encounter for general adult medical examination without abnormal findings (principal); R79.89 Other specified abnormal findings of blood chemistry; R74.8 Abnormal levels of other serum enzymes; E78.5 Hyperlipidemia, unspecified; E78.00 Pure hypercholesterolemia, unspecified; Z78.9 Other specified health status

== ENCOUNTER → 2025-05-05 08:56 | Outpatient (BNVA) | payer MEDICARE, SELFPAY | PROVIDERS: PCP Internal Medicine; Visit Provider Physician Assistant Medical | DX: Z00.01 Encounter for general adult medical examination with abnormal findings (principal); R79.89 Other specified abnormal findings of blood chemistry; R74.8 Abnormal levels of other serum enzymes; E78.5 Hyperlipidemia, unspecified; E78.00 Pure hypercholesterolemia, unspecified; Z78.9 Other specified health status | CPT/HCPCS: 83036; 96127; 99212; 99397 ==

== ENCOUNTER 2025-06-10 08:42 | Outpatient (REF) | payer MEDICARE, SELFPAY ==
[2025-06-10 11:11] LABS: MANUAL DIFF FLAG NO
[2025-06-10 11:30] LABS: Hematocrit 40.0 % (37.0-47.0); Hemoglobin 13.3 g/dl (12.0-16.0); Imm Gran Abs Auto 0.03 X10*3/uL (0.00-0.03); Imm Gran Pct Auto 0.4 % (0.0-0.4); Lymphocytes Absolute Auto 1.5 X10*3/uL (1.2-4.9); Mean Corpuscular HGB Conc 33.3 g/dl (31.0-35.0); Mean Corpuscular Hemoglobin 30.2 pg (27.0-33.0); Mean Corpuscular Volume 90.9 fL (80.0-98.0); NRBC Abs Auto 0.000 X10*3/uL (0.0-0.012); NRBC Pct Auto 0.0 /100WBC (0.0-0.2); Platelet Count 396 X10*3/uL (160-400); Red Blood Count 4.40 X10*6/uL (4.20-5.50); White Blood Count 7.8 X10*3/uL (4.8-10.8)
[2025-06-10 12:11] LABS: Alanine Aminotransferase 16 U/L (0-31); Albumin Level 4.5 g/dL (3.5-5.0); Alkaline Phosphatase 68 U/L (39-117); Amylase 93 U/L (28-100); Anion Gap 12 (12-20); Aspartate Amino Transferase 31 U/L (5-31); Blood Urea Nitrogen 16 mg/dL (9-16); Calcium 9.4 mg/dL (8.4-10.2); Carbon Dioxide 28 mmol/L (22-29); Chloride 105 mmol/L (96-108); Cholesterol 221 mg/dL (<200); Estimated Glomerular Filt Rate > 60; HDL Cholesterol 81 mg/dL (>40); Magnesium 2.2 mg/dL (1.6-2.6); Potassium 4.9 mmol/L (3.3-5.1); Sodium 140 mmol/L (135-145); Total Protein 7.3 g/dL (6.5-8.0); Triglycerides 78 mg/dL (<150)
[2025-06-10 12:52] LABS: Folate 15.2 ng/mL (> or = 4.0); Vitamin B12 767 pg/mL (200-900)
== END 2025-06-10 08:43 | disposition home or self-care (01) ==
LOC: HO.HMGCLDS 08:42
PROVIDERS: PCP Internal Medicine; Visit Provider Physician Assistant Medical
DX: Z00.00 Encounter for general adult medical examination without abnormal findings (principal); R74.8 Abnormal levels of other serum enzymes
CPT/HCPCS: 36415; 80053; 80061; 80076; 82150; 82248; 82306; 82607; 82746; 83735; 84443; 85025; 86140

== ENCOUNTER 2025-08-18 09:48 | Outpatient (REF) | payer MEDICARE, SELFPAY ==
--- NOTE | ~2025-08-18 | MM_ITS ---
EXAMINATION: DXA BONE DENSITY AXIAL HISTORY: M81.0 - Age-related osteoporosis without current pathological fracture TECHNIQUE: COTA Track Dual energy absorptiometry (DEXA) of the lumbar spine, total left hip, and femoral neck was performed. COMPARISON: There are no prior studies for comparison. FINDINGS: The bone mineral density of the lumbar spine is 1.047 g/cm2, corresponding to a T-score of -1.3, and a Z-score of 1.0. This is indicative of osteopenia. The bone mineral density of the left total hip is 0.668 g/cm2, corresponding to a T-score of -2.7, and a Z-score of -0.7. This is indicative of osteoporosis. The bone mineral density of the left femoral neck is 0.686 g/cm2, corresponding to a T-score of -2.5, and a Z-score of -0.3. This is indicative of osteoporosis. MM/XR DEXA axial skeleton IMPRESSION: Based on bone mineral density, and according to World Health Organization (WHO) criteria, the diagnosis is consistent with osteoporosis. Statistically, 68% of repeat scans fall within 1 SD (+/- 0.010 g/cm2 for AP spine L1-L4) and 1 SD (+/- 0.012 g/cm2 for femur total) [employer] is a trademark of the [employer]'s [place] [facility] [employer], a World Health Organization (WHO) Collaborating Center. Electronically signed by: Agus Sandoval MD 08/18/2025 10:22 AM EDT
== END 2025-08-18 09:49 | disposition home or self-care (01) ==
LOC: HO.MAMMO 09:48
PROVIDERS: PCP Internal Medicine; Visit Provider Physician Assistant Medical
DX: M81.0 Age-related osteoporosis without current pathological fracture (principal)
CPT/HCPCS: 77080

== ENCOUNTER → 2025-08-18 10:00 | Outpatient (BNV) | payer MEDICARE, SELFPAY | PROVIDERS: PCP Internal Medicine; Visit Provider Radiology Diagnostic Radiology | DX: E28.39 Other primary ovarian failure (principal) | CPT/HCPCS: 77080 ==

== ENCOUNTER 2025-10-27 09:13 | Outpatient (REF) | payer MEDICARE, SELFPAY | END 2025-10-27 09:14 | disposition home or self-care (01) | LOC: HO.MAMMO 09:13 | PROVIDERS: PCP Physician Assistant Medical; Referring Provider Physician Assistant Medical; Visit Provider Internal Medicine | DX: Z12.31 Encounter for screening mammogram for malignant neoplasm of breast (principal) | CPT/HCPCS: 77063; 77067 ==

== ENCOUNTER → 2025-10-27 09:15 | Outpatient (BNV) | payer MEDICARE, SELFPAY | PROVIDERS: PCP Physician Assistant Medical; Referring Provider Physician Assistant Medical; Visit Provider Internal Medicine | DX: Z12.31 Encounter for screening mammogram for malignant neoplasm of breast (principal) | CPT/HCPCS: 77063; 77067 ==